=== PATIENT | female | born 1960 | race Caucasian/White ===

== ENCOUNTER → 2022-08-31 14:43 | Outpatient (CLI) | payer OTHER, MEDICAID, SELFPAY | PROVIDERS: PCP Family Medicine; Visit Provider Registered Nurse | DX: R30.0 Dysuria (principal) | CPT/HCPCS: 81002; 87077; 87086; 87186 ==

== ENCOUNTER 2022-11-03 10:13 | Emergency (ER) | payer OTHER, MEDICAID, SELFPAY ==
[2022-11-03 10:17] VITALS: BP 142/82; PULSE 95; RESP 14; TEMP 36.8; O2SAT 96
--- NOTE | 2022-11-03 10:26 | DI.RAD.S_ITS ---
PROCEDURE: XR HAND LT MIN 3V INDICATIONS: cat bite TECHNIQUE: 3 views of the hand(s) acquired. COMPARISON: [facility], CR, XR HAND 3+ VIEWS LEFT, 12/24/2017, 14:10. [facility], CR, HAND 3V RIGHT, 01/02/2015, 23:45. FINDINGS: Bones: No acute fractures or dislocations. Carpal bones are normally aligned. No suspicious bony lesions. Soft tissues: No suspicious soft tissuecalcifications. No radiopaque soft tissue foreign bodies . IMPRESSION: Left hand without acute osseous abnormalities. No radiopaque soft tissue foreign body seen. Dictated by: Jakub Talamantes M.D. on 11/03/2022 at 11:05 Approved by: Jakub Talamantes M.D. on 11/03/2022 at 11:07
--- NOTE | 2022-11-03 10:26 | DI.RAD.S_ITS ---
PROCEDURE: XR HAND RT MIN 3V INDICATIONS: cat bite TECHNIQUE: 3 views of the hand(s) acquired. COMPARISON: [facility], , HAND 3V RIGHT, 01/02/2015, 23:45. FINDINGS: Bones: No fractures or dislocations. Carpal bones are normally aligned. No suspicious bony lesions. Redemonstration of background polyarticular degenerative changes and healed fracture deformities of the head of the right 5th metacarpal. Soft tissues: No suspicious soft tissue calcifications. No radiopaque soft tissue foreign body. IMPRESSION: Right hand without acute fracture or dislocation. No radiopaque soft tissue foreign bodies. Dictated by: Jakub Talamantes M.D. on 11/03/2022 at 11:07 Approved by: Jakub Talamantes M.D. on 11/03/2022 at 11:08
[2022-11-03 11:22] VITALS: BP 189/98; PULSE 82; RESP 16; O2SAT 98
[2022-11-03] MEDS: TRAMADOL 50 MG TABLET PO (11:24)
--- NOTE | 2022-11-03 11:25 | ED_ITS ---
HPI - Neck Pain/Injury <Zi Beck PA-C - Last Filed: 11/03/22 11:37> General Chief Complaint: Neck Pain/Injury Stated Complaint: chest,neck and shoulder pain. possible infection Time Seen by Provider: 11/03/22 10:25 Mode of arrival: Ambulatory History of Present Illness HPI Narrative: 61-year-old female presents to the ED with neck pain and requesting a wound check for cat bite sustained yesterday. Patient was seen in the walk-in clinic yesterday for a cat bite, her tetanus was updated, she was started on doxycycline. Patient states that her fingers are painful and she thinks that her wound is infected, requesting wound evaluation. Patient also states that her neck pain has been worse since yesterday, endorses she has a chronic neck condition for which she is being evaluated by her PCP. Patient states that she had an MRI recently which showed some spinal narrowing. Patient has been referred to a orthopedic surgeon, she is waiting to see them. Patient denies fever, chills, numbness, tingling, weakness. Patient denies any new trauma or injuries. Related Data Home Medications Medication Instructions Recorded Confirmed amlodipine PO 08/31/22 08/31/22 mometasone-formoterol [Dulera] inhalation 08/31/22 08/31/22 prazosin PO 08/31/22 08/31/22 sertraline [Zoloft] PO 08/31/22 08/31/22 Previous Rx's Medication Instructions Recorded albuterol sulfate 90 mcg/actuation 1 puff INH Q4HP PRN #1 ea 01/31/16 aerosol inhaler (Ventolin HFA) ibuprofen 800 mg tablet 800 mg PO TIDP PRN #30 tabs 02/14/16 doxycycline hyclate 100 mg capsule 100 mg PO BID #14 caps 11/02/22 Allergies Allergy/AdvReac Type Severity Reaction Status Date / Time Penicillins Allergy Unknown Verified 11/03/22 10:21 Sulfa (Sulfonamide Allergy Unknown Verified 11/03/22 10:21 Antibiotics) ibuprofen AdvReac Unknown Verified 11/03/22 10:22 Review of Systems <Zi Beck PA-C - Last Filed: 11/03/22 11:37> Review of Systems ROS Unobtainable: All systems reviewed & are unremarkable except as noted in HPI and below Constitutional Constitutional: Denies chills, Denies fatigue, Denies fever(s), Denies frequent falls, Denies lethargy and Denies weakness Eyes Eyes: Denies change in vision, Denies eye discharge, Denies irritation and Denies loss of vision ENT Ears, Nose, Mouth, and Throat: Denies change in voice, Denies dizziness, Reports neck pain, Denies sore throat and Denies throat swelling Cardiovascular Cardiovascular: Denies chest pain, Denies irregular heart rhythm, Denies lightheadedness, Denies palpitations, Denies dyspnea, Denies dyspnea on exertion and Denies orthopnea Respiratory Respiratory: Denies cough, Denies dyspnea, Denies dyspnea on exertion and Denies wheezing Gastrointestinal Gastrointestinal: Denies abdominal pain, Denies change in bowel habits, Denies diarrhea, Denies nausea and Denies vomiting Genitourinary Genitourinary: Denies hematuria, Denies flank pain, Denies urinary incontinence and Denies urinary urgency Musculoskeletal Musculoskeletal: Denies back pain, Denies muscle weakness, Reports neck pain, Denies numbness and Denies tingling Integumentary/Breasts Skin/Breast: Denies pruritus, Denies erythema, Denies rash and Reports wounds Neurologic Neurologic: Denies behavioral changes, Denies confusion, Denies dizziness, Denies frequent falls, Denies loss of vision, Denies numbness, Denies tingling and Denies weakness Psychiatric Psychiatric: Denies anxiety, Denies behavioral changes, Denies confusion, Denies depression, Denies homicidal ideation and Denies suicidal ideation Endocrine Endocrine: Denies fatigue, Denies flushing and Denies palpitations Hematologic/Lymphatic Hematologic/Lymphatic: Denies easy bruising Allergic/Immunologic Allergic/Immunologic: Denies urticaria, Denies throat swelling and Denies wheezing Patient History <Zi Beck PA-C - Last Filed: 11/03/22 11:37> Social History Smoking Status: Current every day smoker Smoking Status: Current every day smoker alcohol intake frequency: 0-2 drinks per day Substance Use Type: does not use Exam <Zi Beck PA-C - Last Filed: 11/03/22 11:37> Narrative Exam Narrative: Const General:?cooperative, healthy appearing and comfortable [facility] Head:?normal to inspection Ears:?hearing grossly normal bilaterally Nose:?external nose normal Face and sinus:?normal facial exam and sinuses nontender Mouth:?oral mucosae normal Throat:?posterior oropharynx normal Eyes General:?appearance normal, both eyes and all related structures Neck Neck:?normal visual inspection and no lymphadenopathy noted Resp Effort & Inspection:?normal respiratory effort Auscultation:?clear to auscultation bilaterally Cardio Rate:?regular rate Rhythm:?regular rhythm Integumentary There are 2 bite wounds, 1 on left ring finger, 1 bite on right pointer finger. No overt signs of infection including redness, swelling, discharge. There is mild tenderness to palpation. Strength and sensation is intact. There is full range of motion. Patient is neurovascularly intact. Musculoskeletal No midline tenderness to palpation. No paraspinal tenderness to palpation. There is full range of motion of the neck. Neuro General:?patient alert, patient awake and patient oriented x3 Initial Vital Signs Initial Vital Signs: Vital Signs Temperature 98.3 F 11/03/22 10:17 Pulse Rate 95 H 11/03/22 10:17 Respiratory Rate 14 11/03/22 10:17 Blood Pressure 142/82 H 11/03/22 10:17 Pulse Oximetry 96 11/03/22 10:17 Oxygen Delivery Method Room Air 11/03/22 10:17 <Kenyatta Rosado DO - Last Filed: 11/09/22 09:19> Initial Vital Signs Initial Vital Signs: Vital Signs Temperature 98.3 F 11/03/22 10:17 Pulse Rate 95 H 11/03/22 10:17 Respiratory Rate 14 11/03/22 10:17 Blood Pressure 142/82 H 11/03/22 10:17 Pulse Oximetry 96 11/03/22 10:17 Oxygen Delivery Method Room Air 11/03/22 10:17 Course <Zi Beck PA-C - Last Filed: 11/03/22 11:37> Orders Ordered: Discontinued Medications Tramadol HCl (Tramadol 50 Mg Tablet) 50 mg PO NOW ONE Stop: 11/03/22 11:16 Last Admin: 11/03/22 11:24 Dose: 50 mg Documented By: SPF Vital Signs Vital signs: Vital Signs - 8 hr 11/03/22 10:17 11/03/22 11:22 Temperature 98.3 F Pulse Rate 95 H 82 Respiratory Rate 14 16 Blood Pressure 142/82 H 189/98 H Pulse Oximetry 96 98 Oxygen Delivery Method Room Air Room Air <Kenyatta Rosado DO - Last Filed: 11/09/22 09:19> Orders Ordered: Discontinued Medications Tramadol HCl (Tramadol 50 Mg Tablet) 50 mg PO NOW ONE Stop: 11/03/22 11:16 Last Admin: 11/03/22 11:24 Dose: 50 mg Documented By: IGNACIO Vital Signs Vital signs: Vital Signs - 8 hr 11/03/22 10:17 11/03/22 11:22 Temperature 98.3 F Pulse Rate 95 H 82 Respiratory Rate 14 16 Blood Pressure 142/82 H 189/98 H Pulse Oximetry 96 98 Oxygen Delivery Method Room Air Room Air MDM - Neck Pain/Injury <Zi Beck PA-C - Last Filed: 11/03/22 11:37> MDM Narrative Medical decision making narrative: 61-year-old female presents to the ED with neck pain and requesting a wound check for cat bite sustained yesterday. Obtained x-rays to rule out foreign objects/fracture/dislocation. No acute findings on x-rays. The cat bites appear to be healing without overt signs of infection. Patient is on the appropriate antibiotic, recommend completing the full course, counseled that antibiotics takes 2-3 days to fully kick in. Physical exam and history are reassuring regarding the neck pain. Patient denies numbness, tingling, weakness and there is no new injury or trauma. It seems like patient has an exacerbation of her chronic neck pain, and patient has appropriate follow-up with her PCP and orthopedic surgeon. Patient was given a dose of tramadol for acute pain control in the ED. Recommend supportive pain control with [id number] medications. ED return precautions discussed with patient. Patient verbalized understanding. Medical records reviewed: Yes Discharge Plan Departure Patient Disposition: Home Clinical Impression: Neck pain, Cat bite Instructions: Chronic Neck Pain, DI for Cat Bite Activity Restrictions/Additional Instructions: You were evaluated in the ED today for neck pain and a wound check for a cat bite. Your physical exam is reassuring, you have no spinal tenderness, no numbness tingling or weakness. Your neck pain appears to be an exacerbation of your chronic neck condition for which you had an MRI. Please follow-up with your orthopedic surgeon as planned. You may continue to apply lidocaine patches and take Tylenol or other [id number] medications. You are being given 1 dose of tramadol today for pain control in the ED. you sustained some cat bites yesterday for which you were started on doxycycline. Today in the ED, we obtained x-rays of your hands. X-rays did not show any foreign objects or fractures or dislocations. Your wounds appear to be healing well. Please note that it takes 2-3 days for antibiotics to kick in, so please continue your antibiotics as prescribed. Return to the ED if you experience any chest pain, shortness of breath, numbness, tingling, weakness, fever, chills. Prescriptions: No Action prazosin PO sertraline [Zoloft] PO amlodipine PO mometasone-formoterol [Dulera] inhalation doxycycline hyclate 100 mg capsule 100 mg PO BID Qty: 14 0RF albuterol sulfate [Ventolin HFA] 90 MCG/PUFF HFA aerosol inhaler 1 puff INH Q4HP PRNQty: 1 5RF ibuprofen 800 MG tablet 800 mg PO TIDP PRNQty: 30 0RF Referrals: Gerald Kan MD [Primary Care Provider] - Stand Alone Forms: Patient Portal/API <Kenyatta Rosado DO - Last Filed: 11/09/22 09:19> Cosign ED Attending Cosfannyature Attestation: I was immediately available in the department for consultation. Documentation has been reviewed.
[2022-11-03 11:34] VITALS: BP 189/98
== END 2022-11-03 11:34 | disposition home or self-care (01) ==
PROVIDERS: Emergency Provider Student in an Organized Health Care Education/Training Program; PCP Family Medicine
DX: S61.255A Open bite of left ring finger without damage to nail, initial encounter (principal); S61.250A Open bite of right index finger without damage to nail, initial encounter; M54.2 Cervicalgia; W55.01XA Bitten by cat, initial encounter
CPT/HCPCS: 73130; 99283

== ENCOUNTER 2023-01-28 13:20 | Observation (INO) | payer OTHER, MEDICAID, SELFPAY ==
[2023-01-28] VITALS (80 sets, daily range): BP systolic 91–150; BP diastolic 43–74; PULSE 38–97; RESP 12–46; TEMP 36.7; O2SAT 94–99; BMI 24.7
--- NOTE | 2023-01-28 13:42 | DI.RAD.S_ITS ---
PROCEDURE: XR CHEST 1V INDICATIONS: chest pain TECHNIQUE: One view of the chest was acquired. COMPARISON: [facility], , CHEST 2 VIEW, 10/23/2008, 22:09. FINDINGS: Surgical changes and devices: None. Lungs and pleura: Lungs are clear. No pleural effusions or pneumothorax. Mediastinum: Mediastinal contours appear normal. Heart size is mildly prominent. Bones and chest wall: No suspicious bony lesions. Overlying soft tissues appear unremarkable. IMPRESSION: Portable chest within normal limits for age. Dictated by: Alba Weiss M.D. on 01/28/2023 at 14:10 Approved by: Alba Weiss M.D. on 01/28/2023 at 14:10
[2023-01-28 14:02] LABS: Add Manual Diff / Slide Review NO; Basophils Absolute Auto 100 /uL (0-100); Basophils Percent Auto 0.9 % (0-2); Eosinophils Absolute Auto 100 /uL (0-450); Eosinophils Percent Auto 0.9 % (2-4); Hematocrit 41.9 % (36-46); Hemoglobin 14.4 g/dL (12.0-16.0); Lymphocytes Absolute Auto 1400 /uL (1100-4500); Lymphocytes Percent Auto 13.5 % (25-40); Mean Corpuscular HGB Conc 34.4 % (30-36); Mean Corpuscular Hemoglobin 28.1 PG (26-34); Mean Corpuscular Volume 81.6 fL (80-100); Monocytes Absolute Auto 600 /uL (0-900); Monocytes Percent Auto 5.5 % (3-14); Neutrophils Absolute Auto 8200 /uL (1500-7000); Neutrophils Percent Auto 79.2 % (50-75); Platelet Count 210 X10^3/uL (150-400); Red Blood Cell Count 5.14 X10^6/uL (4.0-5.2); Red Cell Distribution Width 14.4 % (11.6-14.8); White Blood Cell Count 10.4 X10^3/uL (4.5-11.0)
[2023-01-28 14:14] LABS: Alanine Aminotransferase 19 IU/L (<35); Albumin 3.4 g/dL (3.5-5.0); Albumin Globulin Ratio 1.2 (1.0-2.8); Alkaline Phosphatase 78 U/L (38-126); Aspartate Aminotransferase 27 IU/L (14-36); BUN Creatinine Ratio 22.1 (6-22); Bilirubin Total 0.6 mg/dL (0.2-1.3); Blood Urea Nitrogen 23 mg/dL (7-17); Calcium 8.2 mg/dL (8.4-10.2); Carbon Dioxide 19 mmol/L (22-32); Chloride 107 mmol/L (98-107); Creatine Kinase 42 U/L (30-135); Estimated Glomerular Filt Rate > 60 mL/min (>60); Globulin 2.8 g/dL (1.7-4.1); Glucose 117 mg/dL (80-110); HEMOLYSIS 26 (0-50); Lipase 74 U/L (23-300); Magnesium 1.7 mg/dL (1.6-2.3); Potassium 3.4 mmol/L (3.4-5.1); Sodium 132 mmol/L (137-145); Total Protein 6.2 g/dL (6.3-8.2)
[2023-01-28 14:26] LABS: Troponin I 0.042 ng/mL (0.01-0.034)
[2023-01-28 15:02] LABS: INR 1.1 (0.9-1.3); Prothrombin Time 12.7 SECONDS (10.1-12.7)
[2023-01-28 15:05] LABS: PTT Partial Thromboplastin Tim 28 SECONDS (26-36)
--- NOTE | 2023-01-28 15:19 | ED_ITS ---
HPI - Weakness <Goyo Harris MD - Last Filed: 02/05/23 07:25> General Chief complaint: Weakness Stated complaint: Weakness, dehydration Time Seen by Provider: 01/28/23 14:57 Source: EMS Mode of arrival: EMS History of Present Illness HPI Narrative: Patient brought in by EMS from home. Complains of dizziness weakness. Patient states she accidentally took too much clonidine 2 days ago on Wednesday. She has been under a lot of stress. She states she had stress with her boyfriend. Denies denies any SI or HI. Denies taking any other medications. Related Data Home Medications Medication Instructions Recorded Confirmed amlodipine 10 mg PO 1XD 08/31/22 01/29/23 mometasone-formoterol [Dulera] 1 inh inhalation DAILY 08/31/22 01/29/23 prazosin 2 mg PO 1XD 08/31/22 01/29/23 sertraline [Zoloft] 100 mg PO 1XD 08/31/22 01/29/23 ferrous sulfate 325 mg (65 mg 325 mg PO Q OTHER DAY 01/28/23 01/29/23 iron) tablet (FeroSul) Previous Rx's Medication Instructions Recorded albuterol sulfate 90 mcg/actuation 1 puff INH Q4HP PRN #1 ea 01/31/16 aerosol inhaler (Ventolin HFA) Allergies Allergy/AdvReac Type Severity Reaction Status Date / Time Penicillins Allergy Unknown Verified 11/03/22 10:21 Sulfa (Sulfonamide Allergy Unknown Verified 11/03/22 10:21 Antibiotics) ibuprofen AdvReac Unknown Verified 11/03/22 10:22 Review of Systems <Goyo Harris MD - Last Filed: 02/05/23 07:25> Review of Systems Narrative: GENERAL: negative chills, positive fatigue, malaise, negative fever, sweats. HEENT: negative sinus pain, ear pain, sore throat RESPIRATORY: negative dyspnea, cough CARDIOVASCULAR: negative chest pain, palpitations GASTROINTESTINAL: negative nausea, vomiting, abdominal pain : negative dysuria, frequency, hematuria MUSCULOSKELETAL: negative muscle or bony pain SKIN: negative rash, skin lesions NEUROLOGIC: negative weakness, numbness ROS Unobtainable: All systems reviewed & are unremarkable except as noted in HPI and below Patient History <Goyo Harris MD - Last Filed: 02/05/23 07:25> Social History household members: friend(s) Smoking Status: Current every day smoker Smoking Status: Current every day smoker tobacco type: cigarettes alcohol intake frequency: 0-2 drinks per day Substance Use Type: does not use, former substance user, IV drugs and methamphe tamine Exam <Goyo Harris MD - Last Filed: 02/05/23 07:25> Narrative Exam Narrative: GENERAL: in no distress, not toxic not dyspneic HEAD: Normocephalic. EYES: Pupils equal round ENT: Mucous membranes moist. NECK: Trachea midline. CARDIOVASCULAR: Regular rate and rhythm but bradycardic RESPIRATORY: Clear to auscultation. Breath sounds equal bilaterally. No wheezes, rales, or rhonchi. GASTROINTESTINAL: Abdomen soft, non-tender EXTREMITIES: No gross deformities. BACK: No flank tenderness. NEURO: AOx4. SKIN: Warm and dry PSYCH: Not anxious, is cooperative, denies SI or HI. Is cooperative. Not combative Initial Vital Signs Initial Vital Signs: Vital Signs Pulse Rate 42 L 01/28/23 13:30 Respiratory Rate 22 01/28/23 13:30 Blood Pressure 150/68 H 01/28/23 13:30 Pulse Oximetry 96 01/28/23 13:30 <Casandra Devine DO - Last Filed: 01/28/23 20:00> Initial Vital Signs Initial Vital Signs: Vital Signs Pulse Rate 42 L 01/28/23 13:30 Respiratory Rate 22 01/28/23 13:30 Blood Pressure 150/68 H 01/28/23 13:30 Pulse Oximetry 96 01/28/23 13:30 Course <Goyo Harris MD - Last Filed: 02/05/23 07:25> Orders Ordered: Discontinued Medications Acetaminophen (Acetaminophen 325 Mg Tablet) 650 mg PO Q6H PRN PRN Reason: Fever/Mild Pain (1-3) Albuterol (Albuterol 2.5 Mg/3 Ml Neb (Adult)) 2.5 mg INH [id number] PRN PRN Reason: Dyspnea Calcium Carbonate (Calcium Carbonate 500 Mg Tab) 1,000 mg PO Q4HR PRN PRN Reason: Dyspepsia Hydralazine HCl (Hydralazine 25 Mg Tablet) 25 mg PO Q6HR PRN PRN Reason: Hypertension Magnesium Sulfate (Magnesium Sulfate) 2 gm in 50 mls @ 150 mls/hr IV NOW ONE Stop: 01/28/23 15:42 Last Infusion: 01/28/23 16:45 Dose: 0 mls/hr Documented By: KIRILL Co-signed By: HECTOR Admin: 01/28/23 16:04 Dose: 150 mls/hr Documented By: KIRILL Co-signed By: VIDYA Sodium Chloride (Normal Saline 0.9%) 1,000 mls @ 1,000 mls/hr IV BOLUS ONE Stop: 01/28/23 19:12 Last Infusion: 01/28/23 19:41 Dose: 0 mls/hr Documented By: Admin: 01/28/23 18:14 Dose: 1,000 mls/hr Documented By: KIRILL Sodium Chloride (Normal Saline 0.9%) 1,000 mls @ 100 mls/hr IV CONT RAKEL Last Admin: 01/29/23 00:44 Dose: 100 mls/hr Documented By: Lorazepam (Lorazepam 0.5 Mg Tablet) 0.5 mg PO Q4HR PRN PRN Reason: Anxiety Last Admin: 01/29/23 08:59 Dose: 0.5 mg Documented By: Admin: 01/29/23 00:44 Dose: 0.5 mg Documented By: Naloxone HCl (Naloxone 0.4 Mg/Ml Vial) 0.2 mg IV Q2MIN PRN PRN Reason: Opiate Reversal Nicotine (Nicotine 21 Mg Patch) 21 mg TOP DAILY RAKEL Last Admin: 01/29/23 08:58 Dose: 21 mg Documented By: ANSON Ondansetron HCl (Ondansetron 4 Mg/2 Ml Inj) 4 mg IV Q8HR PRN PRN Reason: Nausea And Vomiting Vital Signs Vital signs: Vital Signs - 8 hr 01/28/23 13:42 01/28/23 13:30 01/28/23 13:30 Temperature 98.1 F Pulse Rate 38 L 42 L Pulse Rate [Orthostatic Lying] Pulse Rate [Orthostatic Sitting] Respiratory Rate 12 22 Blood Pressure 150/68 H 150/68 H Blood Pressure [Orthostatic Lying] Blood Pressure [Orthostatic Sitting] Blood Pressure [Orthostatic Standing] Pulse Oximetry 99 96 Oxygen Delivery Method Room Air 01/28/23 14:00 01/28/23 14:13 01/28/23 14:13 Temperature Pulse Rate 43 L 46 L Pulse Rate [Orthostatic Lying] Pulse Rate [Orthostatic Sitting] Respiratory Rate 19 17 Blood Pressure 146/63 H 146/63 H Blood Pressure [Orthostatic Lying] Blood Pressure [Orthostatic Sitting] Blood Pressure [Orthostatic Standing] Pulse Oximetry 96 96 Oxygen Delivery Method Room Air 01/28/23 14:30 01/28/23 15:00 01/28/23 15:00 Temperature Pulse Rate 45 L 44 L Pulse Rate [Orthostatic Lying] Pulse Rate [Orthostatic Sitting] Respiratory Rate 17 18 Blood Pressure 120/59 L Blood Pressure [Orthostatic Lying] Blood Pressure [Orthostatic Sitting] Blood Pressure [Orthostatic Standing] Pulse Oximetry 95 96 Oxygen Delivery Method 01/28/23 15:30 01/28/23 15:31 01/28/23 15:31 Temperature Pulse Rate 48 L 45 L Pulse Rate [Orthostatic Lying] Pulse Rate [Orthostatic Sitting] Respiratory Rate 23 23 Blood Pressure 122/59 L Blood Pressure [Orthostatic Lying] Blood Pressure [Orthostatic Sitting] Blood Pressure [Orthostatic Standing] Pulse Oximetry 97 97 Oxygen Delivery Method 01/28/23 16:00 01/28/23 16:00 01/28/23 17:14 Temperature Pulse Rate 43 L Pulse Rate [Orthostatic Lying] 58 L Pulse Rate [Orthostatic Sitting] 48 L Respiratory Rate 16 Blood Pressure 130/62 Blood Pressure [Orthostatic Lying] 122/59 L Blood Pressure [Orthostatic Sitting] 113/66 Blood Pressure [Orthostatic Standing] 97/46 L Pulse Oximetry 97 Oxygen Delivery Method 01/28/23 16:02 01/28/23 16:04 01/28/23 16:06 Temperature Pulse Rate 43 L 43 L 42 L Pulse Rate [Orthostatic Lying] Pulse Rate [Orthostatic Sitting] Respiratory Rate 16 20 23 Blood Pressure Blood Pressure [Orthostatic Lying] Blood Pressure [Orthostatic Sitting] Blood Pressure [Orthostatic Standing] Pulse Oximetry 97 97 97 Oxygen Delivery Method 01/28/23 16:08 01/28/23 16:10 01/28/23 16:12 Temperature Pulse Rate 46 L 49 L Pulse Rate [Orthostatic Lying] Pulse Rate [Orthostatic Sitting] Respiratory Rate 20 23 Blood Pressure 125/69 Blood Pressure [Orthostatic Lying] Blood Pressure [Orthostatic Sitting] Blood Pressure [Orthostatic Standing] Pulse Oximetry 97 97 Oxygen Delivery Method 01/28/23 16:12 01/28/23 16:14 01/28/23 16:15 Temperature Pulse Rate 46 L 46 L 49 L Pulse Rate [Orthostatic Lying] Pulse Rate [Orthostatic Sitting] Respiratory Rate 25 H 20 30 H Blood Pressure Blood Pressure [Orthostatic Lying] Blood Pressure [Orthostatic Sitting] Blood Pressure [Orthostatic Standing] Pulse Oximetry 97 97 97 Oxygen Delivery Method 01/28/23 16:15 01/28/23 16:16 01/28/23 16:18 Temperature Pulse Rate 57 L 57 L Pulse Rate [Orthostatic Lying] Pulse Rate [Orthostatic Sitting] Respiratory Rate 46 H Blood Pressure 122/67 Blood Pressure [Orthostatic Lying] Blood Pressure [Orthostatic Sitting] Blood Pressure [Orthostatic Standing] Pulse Oximetry 96 94 Oxygen Delivery Method 01/28/23 16:20 01/28/23 16:22 01/28/23 16:24 Temperature Pulse Rate 63 67 65 Pulse Rate [Orthostatic Lying] Pulse Rate [Orthostatic Sitting] Respiratory Rate Blood Pressure Blood Pressure [Orthostatic Lying] Blood Pressure [Orthostatic Sitting] Blood Pressure [Orthostatic Standing] Pulse Oximetry 97 97 98 Oxygen Delivery Method 01/28/23 16:25 01/28/23 16:25 01/28/23 16:26 Temperature Pulse Rate 57 L 53 L Pulse Rate [Orthostatic Lying] Pulse Rate [Orthostatic Sitting] Respiratory Rate 15 Blood Pressure 97/46 L Blood Pressure [Orthostatic Lying] Blood Pressure [Orthostatic Sitting] Blood Pressure [Orthostatic Standing] Pulse Oximetry 96 96 Oxygen Delivery Method 01/28/23 16:28 01/28/23 16:30 01/28/23 16:31 Temperature Pulse Rate 47 L 46 L Pulse Rate [Orthostatic Lying] Pulse Rate [Orthostatic Sitting] Respiratory Rate 26 H 26 H Blood Pressure 110/59 L Blood Pressure [Orthostatic Lying] Blood Pressure [Orthostatic Sitting] Blood Pressure [Orthostatic Standing] Pulse Oximetry 96 96 Oxygen Delivery Method 01/28/23 16:31 01/28/23 16:32 01/28/23 16:34 Temperature Pulse Rate 52 L 43 L 45 L Pulse Rate [Orthostatic Lying] Pulse Rate [Orthostatic Sitting] Respiratory Rate 20 19 19 Blood Pressure Blood Pressure [Orthostatic Lying] Blood Pressure [Orthostatic Sitting] Blood Pressure [Orthostatic Standing] Pulse Oximetry 95 95 95 Oxygen Delivery Method 01/28/23 16:36 01/28/23 16:36 01/28/23 16:38 Temperature Pulse Rate 43 L 45 L Pulse Rate [Orthostatic Lying] Pulse Rate [Orthostatic Sitting] Respiratory Rate 20 18 Blood Pressure 122/59 L Blood Pressure [Orthostatic Lying] Blood Pressure [Orthostatic Sitting] Blood Pressure [Orthostatic Standing] Pulse Oximetry 95 95 Oxygen Delivery Method 01/28/23 16:40 01/28/23 16:42 01/28/23 16:44 Temperature Pulse Rate 97 H 52 L 53 L Pulse Rate [Orthostatic Lying] Pulse Rate [Orthostatic Sitting] Respiratory Rate 26 H 26 H 35 H Blood Pressure Blood Pressure [Orthostatic Lying] Blood Pressure [Orthostatic Sitting] Blood Pressure [Orthostatic Standing] Pulse Oximetry 95 96 96 Oxygen Delivery Method 01/28/23 16:46 01/28/23 16:48 01/28/23 16:50 Temperature Pulse Rate 55 L 67 56 L Pulse Rate [Orthostatic Lying] Pulse Rate [Orthostatic Sitting] Respiratory Rate 31 H 29 H 26 H Blood Pressure Blood Pressure [Orthostatic Lying] Blood Pressure [Orthostatic Sitting] Blood Pressure [Orthostatic Standing] Pulse Oximetry 95 96 95 Oxygen Delivery Method 01/28/23 16:52 01/28/23 16:54 01/28/23 16:55 Temperature Pulse Rate 49 L 44 L Pulse Rate [Orthostatic Lying] Pulse Rate [Orthostatic Sitting] Respiratory Rate 32 H 16 Blood Pressure 112/54 L Blood Pressure [Orthostatic Lying] Blood Pressure [Orthostatic Sitting] Blood Pressure [Orthostatic Standing] Pulse Oximetry 95 95 Oxygen Delivery Method 01/28/23 16:55 01/28/23 16:56 01/28/23 16:58 Temperature Pulse Rate 45 L 42 L 44 L Pulse Rate [Orthostatic Lying] Pulse Rate [Orthostatic Sitting] Respiratory Rate 17 18 26 H Blood Pressure Blood Pressure [Orthostatic Lying] Blood Pressure [Orthostatic Sitting] Blood Pressure [Orthostatic Standing] Pulse Oximetry 96 95 94 Oxygen Delivery Method 01/28/23 17:00 01/28/23 17:00 01/28/23 17:02 Temperature Pulse Rate 39 L 40 L Pulse Rate [Orthostatic Lying] Pulse Rate [Orthostatic Sitting] Respiratory Rate 18 18 Blood Pressure 113/66 Blood Pressure [Orthostatic Lying] Blood Pressure [Orthostatic Sitting] Blood Pressure [Orthostatic Standing] Pulse Oximetry 95 96 Oxygen Delivery Method 01/28/23 17:04 01/28/23 17:05 01/28/23 17:05 Temperature Pulse Rate 45 L Pulse Rate [Orthostatic Lying] Pulse Rate [Orthostatic Sitting] Respiratory Rate 18 18 Blood Pressure 117/57 L Blood Pressure [Orthostatic Lying] Blood Pressure [Orthostatic Sitting] Blood Pressure [Orthostatic Standing] Pulse Oximetry 96 95 Oxygen Delivery Method 01/28/23 17:06 01/28/23 17:10 01/28/23 17:10 Temperature Pulse Rate 40 L 49 L Pulse Rate [Orthostatic Lying] Pulse Rate [Orthostatic Sitting] Respiratory Rate 18 20 Blood Pressure 115/52 L Blood Pressure [Orthostatic Lying] Blood Pressure [Orthostatic Sitting] Blood Pressure [Orthostatic Standing] Pulse Oximetry 96 96 Oxygen Delivery Method Room Air 01/28/23 17:16 01/28/23 17:16 01/28/23 17:24 Temperature Pulse Rate 49 L 49 L Pulse Rate [Orthostatic Lying] Pulse Rate [Orthostatic Sitting] Respiratory Rate 21 18 Blood Pressure 117/74 Blood Pressure [Orthostatic Lying] Blood Pressure [Orthostatic Sitting] Blood Pressure [Orthostatic Standing] Pulse Oximetry 95 95 Oxygen Delivery Method 01/28/23 17:24 01/28/23 17:26 01/28/23 17:30 Temperature Pulse Rate Pulse Rate [Orthostatic Lying] Pulse Rate [Orthostatic Sitting] Respiratory Rate 17 Blood Pressure 105/55 L 91/55 L Blood Pressure [Orthostatic Lying] Blood Pressure [Orthostatic Sitting] Blood Pressure [Orthostatic Standing] Pulse Oximetry 96 Oxygen Delivery Method 01/28/23 17:30 01/28/23 17:36 01/28/23 17:36 Temperature Pulse Rate 55 L 59 L Pulse Rate [Orthostatic Lying] Pulse Rate [Orthostatic Sitting] Respiratory Rate 24 Blood Pressure 101/43 L Blood Pressure [Orthostatic Lying] Blood Pressure [Orthostatic Sitting] Blood Pressure [Orthostatic Standing] Pulse Oximetry 95 96 Oxygen Delivery Method Room Air 01/28/23 17:40 01/28/23 17:49 01/28/23 17:49 Temperature Pulse Rate 53 L 49 L Pulse Rate [Orthostatic Lying] Pulse Rate [Orthostatic Sitting] Respiratory Rate 18 18 Blood Pressure 102/55 L Blood Pressure [Orthostatic Lying] Blood Pressure [Orthostatic Sitting] Blood Pressure [Orthostatic Standing] Pulse Oximetry 95 96 Oxygen Delivery Method 01/28/23 17:55 01/28/23 18:00 01/28/23 18:02 Temperature Pulse Rate 56 L 54 L 54 L Pulse Rate [Orthostatic Lying] Pulse Rate [Orthostatic Sitting] Respiratory Rate 22 23 21 Blood Pressure Blood Pressure [Orthostatic Lying] Blood Pressure [Orthostatic Sitting] Blood Pressure [Orthostatic Standing] Pulse Oximetry 97 96 96 Oxygen Delivery Method 01/28/23 18:04 01/28/23 18:06 01/28/23 18:08 Temperature Pulse Rate 48 L 55 L 49 L Pulse Rate [Orthostatic Lying] Pulse Rate [Orthostatic Sitting] Respiratory Rate 19 23 21 Blood Pressure Blood Pressure [Orthostatic Lying] Blood Pressure [Orthostatic Sitting] Blood Pressure [Orthostatic Standing] Pulse Oximetry 96 95 97 Oxygen Delivery Method 01/28/23 18:10 01/28/23 18:12 01/28/23 18:14 Temperature Pulse Rate 47 L 47 L 47 L Pulse Rate [Orthostatic Lying] Pulse Rate [Orthostatic Sitting] Respiratory Rate 19 19 19 Blood Pressure Blood Pressure [Orthostatic Lying] Blood Pressure [Orthostatic Sitting] Blood Pressure [Orthostatic Standing] Pulse Oximetry 96 96 96 Oxygen Delivery Method 01/28/23 18:16 Temperature Pulse Rate 47 L Pulse Rate [Orthostatic Lying] Pulse Rate [Orthostatic Sitting] Respiratory Rate Blood Pressure 110/54 L Blood Pressure [Orthostatic Lying] Blood Pressure [Orthostatic Sitting] Blood Pressure [Orthostatic Standing] Pulse Oximetry 97 Oxygen Delivery Method <Casandra Devine, - Last Filed: 01/28/23 20:00> Orders Ordered: Discontinued Medications Acetaminophen (Acetaminophen 325 Mg Tablet) 650 mg PO Q6H PRN PRN Reason: Fever/Mild Pain (1-3) Albuterol (Albuterol 2.5 Mg/3 Ml Neb (Adult)) 2.5 mg INH [id number] PRN PRN Reason: Dyspnea Calcium Carbonate (Calcium Carbonate 500 Mg Tab) 1,000 mg PO Q4HR PRN PRN Reason: Dyspepsia Hydralazine HCl (Hydralazine 25 Mg Tablet) 25 mg PO Q6HR PRN PRN Reason: Hypertension Magnesium Sulfate (Magnesium Sulfate) 2 gm in 50 mls @ 150 mls/hr IV NOW ONE Stop: 01/28/23 15:42 Last Infusion: 01/28/23 16:45 Dose: 0 mls/hr Documented By: KIRILL Co-signed By: HECTOR Admin: 01/28/23 16:04 Dose: 150 mls/hr Documented By: KIRILL Co-signed By: VIYDA Sodium Chloride (Normal Saline 0.9%) 1,000 mls @ 1,000 mls/hr IV BOLUS ONE Stop: 01/28/23 19:12 Last Infusion: 01/28/23 19:41 Dose: 0 mls/hr Documented By: Admin: 01/28/23 18:14 Dose: 1,000 mls/hr Documented By: KIRILL Sodium Chloride (Normal Saline 0.9%) 1,000 mls @ 100 mls/hr IV CONT RAKEL Last Admin: 01/29/23 00:44 Dose: 100 mls/hr Documented By: Lorazepam (Lorazepam 0.5 Mg Tablet) 0.5 mg PO Q4HR PRN PRN Reason: Anxiety Last Admin: 01/29/23 08:59 Dose: 0.5 mg Documented By: Admin: 01/29/23 00:44 Dose: 0.5 mg Documented By: Naloxone HCl (Naloxone 0.4 Mg/Ml Vial) 0.2 mg IV Q2MIN PRN PRN Reason: Opiate Reversal Nicotine (Nicotine 21 Mg Patch) 21 mg TOP DAILY [facility] Last Admin: 01/29/23 08:58 Dose: 21 mg Documented By: ANSON Ondansetron HCl (Ondansetron 4 Mg/2 Ml Inj) 4 mg IV Q8HR PRN PRN Reason: Nausea And Vomiting Vital Signs Vital signs: Vital Signs - 8 hr 01/28/23 13:42 01/28/23 13:30 01/28/23 13:30 Temperature 98.1 F Pulse Rate 38 L 42 L Pulse Rate [Orthostatic Lying] Pulse Rate [Orthostatic Sitting] Respiratory Rate 12 22 Blood Pressure 150/68 H 150/68 H Blood Pressure [Orthostatic Lying] Blood Pressure [Orthostatic Sitting] Blood Pressure [Orthostatic Standing] Pulse Oximetry 99 96 Oxygen Delivery Method Room Air 01/28/23 14:00 01/28/23 14:13 01/28/23 14:13 Temperature Pulse Rate 43 L 46 L Pulse Rate [Orthostatic Lying] Pulse Rate [Orthostatic Sitting] Respiratory Rate 19 17 Blood Pressure 146/63 H 146/63 H Blood Pressure [Orthostatic Lying] Blood Pressure [Orthostatic Sitting] Blood Pressure [Orthostatic Standing] Pulse Oximetry 96 96 Oxygen Delivery Method Room Air 01/28/23 14:30 01/28/23 15:00 01/28/23 15:00 Temperature Pulse Rate 45 L 44 L Pulse Rate [Orthostatic Lying] Pulse Rate [Orthostatic Sitting] Respiratory Rate 17 18 Blood Pressure 120/59 L Blood Pressure [Orthostatic Lying] Blood Pressure [Orthostatic Sitting] Blood Pressure [Orthostatic Standing] Pulse Oximetry 95 96 Oxygen Delivery Method 01/28/23 15:30 01/28/23 15:31 01/28/23 15:31 Temperature Pulse Rate 48 L 45 L Pulse Rate [Orthostatic Lying] Pulse Rate [Orthostatic Sitting] Respiratory Rate 23 23 Blood Pressure 122/59 L Blood Pressure [Orthostatic Lying] Blood Pressure [Orthostatic Sitting] Blood Pressure [Orthostatic Standing] Pulse Oximetry 97 97 Oxygen Delivery Method 01/28/23 16:00 01/28/23 16:00 01/28/23 17:14 Temperature Pulse Rate 43 L Pulse Rate [Orthostatic Lying] 58 L Pulse Rate [Orthostatic Sitting] 48 L Respiratory Rate 16 Blood Pressure 130/62 Blood Pressure [Orthostatic Lying] 122/59 L Blood Pressure [Orthostatic Sitting] 113/66 Blood Pressure [Orthostatic Standing] 97/46 L Pulse Oximetry 97 Oxygen Delivery Method 01/28/23 16:02 01/28/23 16:04 01/28/23 16:06 Temperature Pulse Rate 43 L 43 L 42 L Pulse Rate [Orthostatic Lying] Pulse Rate [Orthostatic Sitting] Respiratory Rate 16 20 23 Blood Pressure Blood Pressure [Orthostatic Lying] Blood Pressure [Orthostatic Sitting] Blood Pressure [Orthostatic Standing] Pulse Oximetry 97 97 97 Oxygen Delivery Method 01/28/23 16:08 01/28/23 16:10 01/28/23 16:12 Temperature Pulse Rate 46 L 49 L Pulse Rate [Orthostatic Lying] Pulse Rate [Orthostatic Sitting] Respiratory Rate 20 23 Blood Pressure 125/69 Blood Pressure [Orthostatic Lying] Blood Pressure [Orthostatic Sitting] Blood Pressure [Orthostatic Standing] Pulse Oximetry 97 97 Oxygen Delivery Method 01/28/23 16:12 01/28/23 16:14 01/28/23 16:15 Temperature Pulse Rate 46 L 46 L 49 L Pulse Rate [Orthostatic Lying] Pulse Rate [Orthostatic Sitting] Respiratory Rate 25 H 20 30 H Blood Pressure Blood Pressure [Orthostatic Lying] Blood Pressure [Orthostatic Sitting] Blood Pressure [Orthostatic Standing] Pulse Oximetry 97 97 97 Oxygen Delivery Method 01/28/23 16:15 01/28/23 16:16 01/28/23 16:18 Temperature Pulse Rate 57 L 57 L Pulse Rate [Orthostatic Lying] Pulse Rate [Orthostatic Sitting] Respiratory Rate 46 H Blood Pressure 122/67 Blood Pressure [Orthostatic Lying] Blood Pressure [Orthostatic Sitting] Blood Pressure [Orthostatic Standing] Pulse Oximetry 96 94 Oxygen Delivery Method 01/28/23 16:20 01/28/23 16:22 01/28/23 16:24 Temperature Pulse Rate 63 67 65 Pulse Rate [Orthostatic Lying] Pulse Rate [Orthostatic Sitting] Respiratory Rate Blood Pressure Blood Pressure [Orthostatic Lying] Blood Pressure [Orthostatic Sitting] Blood Pressure [Orthostatic Standing] Pulse Oximetry 97 97 98 Oxygen Delivery Method 01/28/23 16:25 01/28/23 16:25 01/28/23 16:26 Temperature Pulse Rate 57 L 53 L Pulse Rate [Orthostatic Lying] Pulse Rate [Orthostatic Sitting] Respiratory Rate 15 Blood Pressure 97/46 L Blood Pressure [Orthostatic Lying] Blood Pressure [Orthostatic Sitting] Blood Pressure [Orthostatic Standing] Pulse Oximetry 96 96 Oxygen Delivery Method 01/28/23 16:28 01/28/23 16:30 01/28/23 16:31 Temperature Pulse Rate 47 L 46 L Pulse Rate [Orthostatic Lying] Pulse Rate [Orthostatic Sitting] Respiratory Rate 26 H 26 H Blood Pressure 110/59 L Blood Pressure [Orthostatic Lying] Blood Pressure [Orthostatic Sitting] Blood Pressure [Orthostatic Standing] Pulse Oximetry 96 96 Oxygen Delivery Method 01/28/23 16:31 01/28/23 16:32 01/28/23 16:34 Temperature Pulse Rate 52 L 43 L 45 L Pulse Rate [Orthostatic Lying] Pulse Rate [Orthostatic Sitting] Respiratory Rate 20 19 19 Blood Pressure Blood Pressure [Orthostatic Lying] Blood Pressure [Orthostatic Sitting] Blood Pressure [Orthostatic Standing] Pulse Oximetry 95 95 95 Oxygen Delivery Method 01/28/23 16:36 01/28/23 16:36 01/28/23 16:38 Temperature Pulse Rate 43 L 45 L Pulse Rate [Orthostatic Lying] Pulse Rate [Orthostatic Sitting] Respiratory Rate 20 18 Blood Pressure 122/59 L Blood Pressure [Orthostatic Lying] Blood Pressure [Orthostatic Sitting] Blood Pressure [Orthostatic Standing] Pulse Oximetry 95 95 Oxygen Delivery Method 01/28/23 16:40 01/28/23 16:42 01/28/23 16:44 Temperature Pulse Rate 97 H 52 L 53 L Pulse Rate [Orthostatic Lying] Pulse Rate [Orthostatic Sitting] Respiratory Rate 26 H 26 H 35 H Blood Pressure Blood Pressure [Orthostatic Lying] Blood Pressure [Orthostatic Sitting] Blood Pressure [Orthostatic Standing] Pulse Oximetry 95 96 96 Oxygen Delivery Method 01/28/23 16:46 01/28/23 16:48 01/28/23 16:50 Temperature Pulse Rate 55 L 67 56 L Pulse Rate [Orthostatic Lying] Pulse Rate [Orthostatic Sitting] Respiratory Rate 31 H 29 H 26 H Blood Pressure Blood Pressure [Orthostatic Lying] Blood Pressure [Orthostatic Sitting] Blood Pressure [Orthostatic Standing] Pulse Oximetry 95 96 95 Oxygen Delivery Method 01/28/23 16:52 01/28/23 16:54 01/28/23 16:55 Temperature Pulse Rate 49 L 44 L Pulse Rate [Orthostatic Lying] Pulse Rate [Orthostatic Sitting] Respiratory Rate 32 H 16 Blood Pressure 112/54 L Blood Pressure [Orthostatic Lying] Blood Pressure [Orthostatic Sitting] Blood Pressure [Orthostatic Standing] Pulse Oximetry 95 95 Oxygen Delivery Method 01/28/23 16:55 01/28/23 16:56 01/28/23 16:58 Temperature Pulse Rate 45 L 42 L 44 L Pulse Rate [Orthostatic Lying] Pulse Rate [Orthostatic Sitting] Respiratory Rate 17 18 26 H Blood Pressure Blood Pressure [Orthostatic Lying] Blood Pressure [Orthostatic Sitting] Blood Pressure [Orthostatic Standing] Pulse Oximetry 96 95 94 Oxygen Delivery Method 01/28/23 17:00 01/28/23 17:00 01/28/23 17:02 Temperature Pulse Rate 39 L 40 L Pulse Rate [Orthostatic Lying] Pulse Rate [Orthostatic Sitting] Respiratory Rate 18 18 Blood Pressure 113/66 Blood Pressure [Orthostatic Lying] Blood Pressure [Orthostatic Sitting] Blood Pressure [Orthostatic Standing] Pulse Oximetry 95 96 Oxygen Delivery Method 01/28/23 17:04 01/28/23 17:05 01/28/23 17:05 Temperature Pulse Rate 45 L Pulse Rate [Orthostatic Lying] Pulse Rate [Orthostatic Sitting] Respiratory Rate 18 18 Blood Pressure 117/57 L Blood Pressure [Orthostatic Lying] Blood Pressure [Orthostatic Sitting] Blood Pressure [Orthostatic Standing] Pulse Oximetry 96 95 Oxygen Delivery Method 01/28/23 17:06 01/28/23 17:10 01/28/23 17:10 Temperature Pulse Rate 40 L 49 L Pulse Rate [Orthostatic Lying] Pulse Rate [Orthostatic Sitting] Respiratory Rate 18 20 Blood Pressure 115/52 L Blood Pressure [Orthostatic Lying] Blood Pressure [Orthostatic Sitting] Blood Pressure [Orthostatic Standing] Pulse Oximetry 96 96 Oxygen Delivery Method Room Air 01/28/23 17:16 01/28/23 17:16 01/28/23 17:24 Temperature Pulse Rate 49 L 49 L Pulse Rate [Orthostatic Lying] Pulse Rate [Orthostatic Sitting] Respiratory Rate 21 18 Blood Pressure 117/74 Blood Pressure [Orthostatic Lying] Blood Pressure [Orthostatic Sitting] Blood Pressure [Orthostatic Standing] Pulse Oximetry 95 95 Oxygen Delivery Method 01/28/23 17:24 01/28/23 17:26 01/28/23 17:30 Temperature Pulse Rate Pulse Rate [Orthostatic Lying] Pulse Rate [Orthostatic Sitting] Respiratory Rate 17 Blood Pressure 105/55 L 91/55 L Blood Pressure [Orthostatic Lying] Blood Pressure [Orthostatic Sitting] Blood Pressure [Orthostatic Standing] Pulse Oximetry 96 Oxygen Delivery Method 01/28/23 17:30 01/28/23 17:36 01/28/23 17:36 Temperature Pulse Rate 55 L 59 L Pulse Rate [Orthostatic Lying] Pulse Rate [Orthostatic Sitting] Respiratory Rate 24 Blood Pressure 101/43 L Blood Pressure [Orthostatic Lying] Blood Pressure [Orthostatic Sitting] Blood Pressure [Orthostatic Standing] Pulse Oximetry 95 96 Oxygen Delivery Method Room Air 01/28/23 17:40 01/28/23 17:49 01/28/23 17:49 Temperature Pulse Rate 53 L 49 L Pulse Rate [Orthostatic Lying] Pulse Rate [Orthostatic Sitting] Respiratory Rate 18 18 Blood Pressure 102/55 L Blood Pressure [Orthostatic Lying] Blood Pressure [Orthostatic Sitting] Blood Pressure [Orthostatic Standing] Pulse Oximetry 95 96 Oxygen Delivery Method 01/28/23 17:55 01/28/23 18:00 01/28/23 18:02 Temperature Pulse Rate 56 L 54 L 54 L Pulse Rate [Orthostatic Lying] Pulse Rate [Orthostatic Sitting] Respiratory Rate 22 23 21 Blood Pressure Blood Pressure [Orthostatic Lying] Blood Pressure [Orthostatic Sitting] Blood Pressure [Orthostatic Standing] Pulse Oximetry 97 96 96 Oxygen Delivery Method 01/28/23 18:04 01/28/23 18:06 01/28/23 18:08 Temperature Pulse Rate 48 L 55 L 49 L Pulse Rate [Orthostatic Lying] Pulse Rate [Orthostatic Sitting] Respiratory Rate 19 23 21 Blood Pressure Blood Pressure [Orthostatic Lying] Blood Pressure [Orthostatic Sitting] Blood Pressure [Orthostatic Standing] Pulse Oximetry 96 95 97 Oxygen Delivery Method 01/28/23 18:10 01/28/23 18:12 01/28/23 18:14 Temperature Pulse Rate 47 L 47 L 47 L Pulse Rate [Orthostatic Lying] Pulse Rate [Orthostatic Sitting] Respiratory Rate 19 19 19 Blood Pressure Blood Pressure [Orthostatic Lying] Blood Pressure [Orthostatic Sitting] Blood Pressure [Orthostatic Standing] Pulse Oximetry 96 96 96 Oxygen Delivery Method 01/28/23 18:16 Temperature Pulse Rate 47 L Pulse Rate [Orthostatic Lying] Pulse Rate [Orthostatic Sitting] Respiratory Rate Blood Pressure 110/54 L Blood Pressure [Orthostatic Lying] Blood Pressure [Orthostatic Sitting] Blood Pressure [Orthostatic Standing] Pulse Oximetry 97 Oxygen Delivery Method MDM - Weakness <Goyo Harris MD - Last Filed: 02/05/23 07:25> Lab Data 01/29/23 08:18 01/28/23 13:45 Labs: Lab Results 01/28/23 01/28/23 01/28/23 Range/Units 13:45 13:45 14:33 WBC 10.4 (4.5-11.0) X10^3/uL RBC 5.14 (4.0-5.2) X10^6/uL Hgb 14.4 (12.0-16.0) g/dL Hct 41.9 (36-46) % MCV 81.6 (80-100) fL MCH 28.1 (26-34) PG MCHC 34.4 (30-36) % RDW 14.4 (11.6-14.8) % Plt Count 210 (150-400) X10^3/uL Neut % (Auto) 79.2 H (50-75) % Lymph % (Auto) 13.5 L (25-40) % [place] % (Auto) 5.5 (3-14) % Eos % (Auto) 0.9 L (2-4) % Baso % (Auto) 0.9 (0-2) % Neut # (Auto) 8200 H (8958-4708) /uL Lymph # (Auto) 1400 (0040-2481) /uL [place] # (Auto) 600 (0-900) /uL Eos # (Auto) 100 (0-450) /uL Baso # (Auto) 100 (0-100) /uL PT 12.7 (10.1-12.7) SECONDS INR 1.1 (0.9-1.3) APTT 28 (26-36) SECONDS Sodium 132 L (137-145) mmol/L Potassium 3.4 (3.4-5.1) mmol/L Chloride 107 (98-107) mmol/L Carbon Dioxide 19 L (22-32) mmol/L BUN 23 H (7-17) mg/dL Creatinine 1.04 (0.52-1.04) mg/dL Estimated GFR > 60 (>60) mL/min BUN/Creatinine Ratio 22.1 H (6-22) Glucose 117 H (80-110) mg/dL Calcium 8.2 L (8.4-10.2) mg/dL Magnesium 1.7 (1.6-2.3) mg/dL Total Bilirubin 0.6 (0.2-1.3) mg/dL AST 27 (14-36) IU/L ALT 19 (<35) IU/L Alkaline Phosphatase 78 (38-126) U/L Total Creatine Kinase 42 (30-135) U/L Troponin I 0.042 H (0.01-0.034) ng/mL Total Protein 6.2 L (6.3-8.2) g/dL Albumin 3.4 L (3.5-5.0) g/dL Globulin 2.8 (1.7-4.1) g/dL Albumin/Globulin Ratio 1.2 (1.0-2.8) Lipase 74 (23-300) U/L U Opiates 300ng/mL cut (Negative) Ur Oxycodone Screen (Negative) Urine Methadone Screen (Negative) Ur Barbiturates Screen (Negative) U Tricyclic Antidepress (Negative) Ur Phencyclidine Scrn (Negative) Ur Amphetamines Screen (Negative) U Methamphetamines Scrn (Negative) Ur MDMA Scrn (Ecstasy) (Negative) U Benzodiazepines Scrn (Negative) Urine Cocaine Screen (Negative) U Marijuana (THC) Screen (Negative) Ethyl Alcohol ( - 10) mg/dL 01/28/23 01/28/23 01/28/23 Range/Units 18:02 18:17 19:48 WBC (4.5-11.0) X10^3/uL RBC (4.0-5.2) X10^6/uL Hgb (12.0-16.0) g/dL Hct (36-46) % MCV (80-100) fL MCH (26-34) PG MCHC (30-36) % RDW (11.6-14.8) % Plt Count (150-400) X10^3/uL Neut % (Auto) (50-75) % Lymph % (Auto) (25-40) % [place] % (Auto) (3-14) % Eos % (Auto) (2-4) % Baso % (Auto) (0-2) % Neut # (Auto) (1691-1959) /uL Lymph # (Auto) (7903-1808) /uL [place] # (Auto) (0-900) /uL Eos # (Auto) (0-450) /uL Baso # (Auto) (0-100) /uL PT (10.1-12.7) SECONDS INR (0.9-1.3) APTT (26-36) SECONDS Sodium (137-145) mmol/L Potassium (3.4-5.1) mmol/L Chloride (98-107) mmol/L Carbon Dioxide (22-32) mmol/L BUN (7-17) mg/dL Creatinine (0.52-1.04) mg/dL Estimated GFR (>60) mL/min BUN/Creatinine Ratio (6-22) Glucose (80-110) mg/dL Calcium (8.4-10.2) mg/dL Magnesium (1.6-2.3) mg/dL Total Bilirubin (0.2-1.3) mg/dL AST (14-36) IU/L ALT (<35) IU/L Alkaline Phosphatase (38-126) U/L Total Creatine Kinase 40 (30-135) U/L Troponin I 0.032 (0.01-0.034) ng/mL Total Protein (6.3-8.2) g/dL Albumin (3.5-5.0) g/dL Globulin (1.7-4.1) g/dL Albumin/Globulin Ratio (1.0-2.8) Lipase (23-300) U/L U Opiates 300ng/mL cut Negative (Negative) Ur Oxycodone Screen Negative (Negative) Urine Methadone Screen Negative (Negative) Ur Barbiturates Screen Negative (Negative) U Tricyclic Antidepress Negative (Negative) Ur Phencyclidine Scrn Negative (Negative) Ur Amphetamines Screen Negative (Negative) U Methamphetamines Scrn Negative (Negative) Ur MDMA Scrn (Ecstasy) Negative (Negative) U Benzodiazepines Scrn Negative (Negative) Urine Cocaine Screen Negative (Negative) U Marijuana (THC) Screen Negative (Negative) Ethyl Alcohol < 10 ( - 10) mg/dL Imaging Data Chest x-ray: Radiologist Impression: [address] [address] XRay Report Signed Patient: Izzy Cain MR#: [id number] : 1960 Acct:[id number] Age/Sex: 62 / F Date of Service: 01/28/23 Loc: Accession Number: [id number] ?? Procedure: XR chest 1V Ordering Provider: Goyo Harris MD PROCEDURE:? XR CHEST 1V ? INDICATIONS:? chest pain ? TECHNIQUE:? One view of the chest was acquired.? ? COMPARISON:? [facility], , CHEST 2 VIEW, 10/23/2008, 22:09. ? FINDINGS:? ? Surgical changes and devices:? None.? ? Lungs and pleura:? Lungs are clear.? No pleural effusions or pneumothorax.? ? Mediastinum:? Mediastinal contours appear normal.? Heart size is mildly prominent. ? Bones and chest wall:? No suspicious bony lesions.? Overlying soft tissues appear unremarkable.? ? ? IMPRESSION:? Portable chest within normal limits for age. ? ? Dictated by: Alba Weiss M.D. on 01/28/2023 at 14:10 ? ? Approved by: Alba Weiss M.D. on 01/28/2023 at 14:10 ? MDM Narrative Medical decision making narrative: Patient brought in by EMS from home. Complains of dizziness weakness. Patient states she accidentally took too much clonidine 2 days ago on Wednesday. She has been under a lot of stress. She states she had stress with her boyfriend. Denies denies any SI or HI. Denies taking any other medications. After history and exam [facility] CC: Dizziness weakness Complicating co-morbidities: Clonidine overdose 0.2 mg tablets Data collected from: Patient Medical records reviewed: No recent visit for this complaint Differential considered: Includes but not limited to medication overdose/accidental. Hypotension. Arrhythmia Exam documented above, pertinent findings include: Bradycardia Lab Test results independently reviewed as above. Pertinent findings: Troponin 0.042 Sodium 132 potassium 3.4 bicarb 19 BUN 23 glucose 117 magnesium 1.7 WBC 10.4 hemoglobin 14.4 Independently reviewed EKG sinus bradycardia rate 43 QT 698/QTC 589 Imaging studies independently reviewed: Chest x-ray no acute finding Consultations: 3:26 p.m. for spoke with poison control. At this time regarding QTC, give 2 g of magnesium. Will need observation admission. Spoke with Dr. Padron, cardiology, will need observation for bradycardia and agrees magnesium for QT prolongation Treatments: Magnesium sulfate Re-evaluations: Discussion: Diagnosis: 6:00 p.m.. Brennick: Sign out to Dr Devine laboratory studies repeat pending. Repeat normal saline ordered as well as troponin. Will need to review possibly with cardiology again <Casandra Devine, DO - Last Filed: 01/28/23 20:00> Lab Data Labs: Lab Results 01/28/23 01/28/23 01/28/23 Range/Units 13:45 13:45 14:33 WBC 10.4 (4.5-11.0) X10^3/uL RBC 5.14 (4.0-5.2) X10^6/uL Hgb 14.4 (12.0-16.0) g/dL Hct 41.9 (36-46) % MCV 81.6 (80-100) fL MCH 28.1 (26-34) PG MCHC 34.4 (30-36) % RDW 14.4 (11.6-14.8) % Plt Count 210 (150-400) X10^3/uL Neut % (Auto) 79.2 H (50-75) % Lymph % (Auto) 13.5 L (25-40) % [place] % (Auto) 5.5 (3-14) % Eos % (Auto) 0.9 L (2-4) % Baso % (Auto) 0.9 (0-2) % Neut # (Auto) 8200 H (8186-9502) /uL Lymph # (Auto) 1400 (0873-0971) /uL [place] # (Auto) 600 (0-900) /uL Eos # (Auto) 100 (0-450) /uL Baso # (Auto) 100 (0-100) /uL PT 12.7 (10.1-12.7) SECONDS INR 1.1 (0.9-1.3) APTT 28 (26-36) SECONDS Sodium 132 L (137-145) mmol/L Potassium 3.4 (3.4-5.1) mmol/L Chloride 107 (98-107) mmol/L Carbon Dioxide 19 L (22-32) mmol/L BUN 23 H (7-17) mg/dL Creatinine 1.04 (0.52-1.04) mg/dL Estimated GFR > 60 (>60) mL/min BUN/Creatinine Ratio 22.1 H (6-22) Glucose 117 H (80-110) mg/dL Calcium 8.2 L (8.4-10.2) mg/dL Magnesium 1.7 (1.6-2.3) mg/dL Total Bilirubin 0.6 (0.2-1.3) mg/dL AST 27 (14-36) IU/L ALT 19 (<35) IU/L Alkaline Phosphatase 78 (38-126) U/L Total Creatine Kinase 42 (30-135) U/L Troponin I 0.042 H (0.01-0.034) ng/mL Total Protein 6.2 L (6.3-8.2) g/dL Albumin 3.4 L (3.5-5.0) g/dL Globulin 2.8 (1.7-4.1) g/dL Albumin/Globulin Ratio 1.2 (1.0-2.8) Lipase 74 (23-300) U/L U Opiates 300ng/mL cut (Negative) Ur Oxycodone Screen (Negative) Urine Methadone Screen (Negative) Ur Barbiturates Screen (Negative) U Tricyclic Antidepress (Negative) Ur Phencyclidine Scrn (Negative) Ur Amphetamines Screen (Negative) U Methamphetamines Scrn (Negative) Ur MDMA Scrn (Ecstasy) (Negative) U Benzodiazepines Scrn (Negative) Urine Cocaine Screen (Negative) U Marijuana (THC) Screen (Negative) Ethyl Alcohol ( - 10) mg/dL 01/28/23 01/28/23 01/28/23 Range/Units 18:02 18:17 19:48 WBC (4.5-11.0) X10^3/uL RBC (4.0-5.2) X10^6/uL Hgb (12.0-16.0) g/dL Hct (36-46) % MCV (80-100) fL MCH (26-34) PG MCHC (30-36) % RDW (11.6-14.8) % Plt Count (150-400) X10^3/uL Neut % (Auto) (50-75) % Lymph % (Auto) (25-40) % [place] % (Auto) (3-14) % Eos % (Auto) (2-4) % Baso % (Auto) (0-2) % Neut # (Auto) (0334-5068) /uL Lymph # (Auto) (7093-2312) /uL [place] # (Auto) (0-900) /uL Eos # (Auto) (0-450) /uL Baso # (Auto) (0-100) /uL PT (10.1-12.7) SECONDS INR (0.9-1.3) APTT (26-36) SECONDS Sodium (137-145) mmol/L Potassium (3.4-5.1) mmol/L Chloride (98-107) mmol/L Carbon Dioxide (22-32) mmol/L BUN (7-17) mg/dL Creatinine (0.52-1.04) mg/dL Estimated GFR (>60) mL/min BUN/Creatinine Ratio (6-22) Glucose (80-110) mg/dL Calcium (8.4-10.2) mg/dL Magnesium (1.6-2.3) mg/dL Total Bilirubin (0.2-1.3) mg/dL AST (14-36) IU/L ALT (<35) IU/L Alkaline Phosphatase (38-126) U/L Total Creatine Kinase 40 (30-135) U/L Troponin I 0.032 (0.01-0.034) ng/mL Total Protein (6.3-8.2) g/dL Albumin (3.5-5.0) g/dL Globulin (1.7-4.1) g/dL Albumin/Globulin Ratio (1.0-2.8) Lipase (23-300) U/L U Opiates 300ng/mL cut Negative (Negative) Ur Oxycodone Screen Negative (Negative) Urine Methadone Screen Negative (Negative) Ur Barbiturates Screen Negative (Negative) U Tricyclic Antidepress Negative (Negative) Ur Phencyclidine Scrn Negative (Negative) Ur Amphetamines Screen Negative (Negative) U Methamphetamines Scrn Negative (Negative) Ur MDMA Scrn (Ecstasy) Negative (Negative) U Benzodiazepines Scrn Negative (Negative) Urine Cocaine Screen Negative (Negative) U Marijuana (THC) Screen Negative (Negative) Ethyl Alcohol < 10 ( - 10) mg/dL ECG Data Interpretation: EKG 1 sinus bradycardia rate of 43 CO 186 QRS 82 QTC 589. T-wave inversion V1 2 and prolonged QT. no patient does have prior EKG from 05/07/2017 which does not have T-wave changes consistent with today's. EKG 2. Rate of 48 CO 202 QRS is 78 QTC 434. No dynamic changes from 1st to 2nd EKG appears similar to 1st. EKG 3. Sinus bradycardia rate of 49 CO 182 QRS is 78 QTC 558. No acute dynamic changes appreciated. [facility] Narrative Medical decision making narrative: Patient brought in by EMS from home. Complains of dizziness weakness. Patient states she accidentally took too much clonidine 2 days ago on Wednesday. She has been under a lot of stress. She states she had stress with her boyfriend. Denies denies any SI or HI. Denies taking any other medications. After history and exam [facility] CC: Dizziness weakness Complicating co-morbidities: Clonidine overdose 0.2 mg tablets Data collected from: Patient Medical records reviewed: No recent visit for this complaint Differential considered: Includes but not limited to medication overdose/accidental. Hypotension. Arrhythmia Exam documented above, pertinent findings include: Bradycardia Lab Test results independently reviewed as above. Pertinent findings: Troponin 0.042 Sodium 132 potassium 3.4 bicarb 19 BUN 23 glucose 117 magnesium 1.7 WBC 10.4 hemoglobin 14.4 Independently reviewed EKG sinus bradycardia rate 43 QT 698/QTC 589 Imaging studies independently reviewed: Chest x-ray no acute finding Consultations: 3:26 p.m. for spoke with poison control. At this time regarding QTC, give 2 g of magnesium. Will need observation admission. Spoke with Dr. Padron, cardiology, will need observation for bradycardia and agrees magnesium for QT prolongation Treatments: Magnesium sulfate Re-evaluations: Discussion: Diagnosis: 6:00 p.m.. Kimberly: Sign out to Dr Devine laboratory studies repeat pending. Repeat normal saline ordered as well as troponin. Will need to review possibly with cardiology again 01/28/23 Sybil: Patient signed out to myself by Dr. Rogers. Patient seen and evaluated by myself. Patient physical examined by myself. Patient reportedly overdose on clonidine 2 days prior she has bradycardia and some orthostatic hypotension here in the department. She does appear to have some ST change compared to prior. Patient was recommended recent magnesium from poison control she received which did seem to improve her rate somewhat while she is been here as well as her QT. patient's other labs did not show any other acute changes besides troponin of 0.042 repeat is 0.032. Renal function is appropriate CO2 was 19 sodium 132. LFTs otherwise normal. CBC and coags are negative. ETOH is negative. Chest x-ray shows no acute change. He is feeling somewhat improved after some fluids had a 2 L ordered. QT did appear to improve even on 3rd EKG. EKGs were reviewed patient does have a change from 05/07/2017 particularly in lateral leads. Patient has not had any she dynamic changes today but does have changed from 2017 to today. Reconsulted with Dr. Ruiz from cardiology: Agrees with plan for cardiac observation unclear if this is truly the cause of her symptoms. Patient denies ingestion of any other medications. She does take prazosin daily, amlodipine along with her Catapres, sertraline and uses albuterol and Dulera as needed. Spoke with Dr. Paul who accepts for observation. Discussed recommendations from Cardiology. Discussed patient has not had any chest pain no shortness of breath she did have some sweatiness that she describes even happening before the Catapres. Patient has had lightheadedness but no syncope but near syncope. Discharge Plan Departure Patient Disposition: Admitted as Observation Clinical Impression: Symptomatic bradycardia Admit Date/Time: 01/28/23 19:58 Admit Provider: Adriel Paul
[2023-01-28] MEDS: MAGNESIUM SULFATE 2 GM/50 ML PIGGYBACK IV (16:04)
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
[2023-01-28] MEDS: SODIUM CHLORIDE 0.9% 1,000 ML 1000 ML IV (18:14)
--- NOTE | 2023-01-28 18:19 | PC.NURSE ---
pt received 1000 cc normal saline from the field. ivf's finished infusing while in er. Dr. Harris aware of orthostatics. another liter of IVF's hung. pt's HR , sinus bradycardia 46-49, bp stable.
[2023-01-28 18:27] LABS: Ethanol (ETOH) < 10 mg/dL
[2023-01-28 18:27] LABS: Creatine Kinase 40 U/L (30-135)
[2023-01-28 18:39] LABS: Troponin I 0.032 ng/mL (0.01-0.034)
--- NOTE | 2023-01-28 19:58 | PC.NURSE ---
Got up patient to the commode. Patient eas able to sit on the edge of bed and stand up without assistance, denied dizziness or SOB. After getting back in to bed, patient stated she feels dizzy. Dr. Devine notified.
[2023-01-28 20:13] LABS: UR Morphine/Opiate cutoff 300 Negative (Negative); Ur Creatinine Normal (Normal); Ur Specific Gravity Normal (Normal); Urine Amphetamines Negative (Negative); Urine Barbiturates Negative (Negative); Urine Benzodiazepines Negative (Negative); Urine Cocaine Negative (Negative); Urine MDMA Negative (Negative); Urine Methadone Negative (Negative); Urine Methamphetamines Negative (Negative); Urine Oxycodone Negative (Negative); Urine Phencyclidine Negative (Negative); Urine Tetrahydrocannabinol Negative (Negative); Urine Tricyclic Antidepressant Negative (Negative); Urine pH Normal (Normal)
--- NOTE | 2023-01-28 22:04 | P.HP_ITS ---
History of Present Illness History of Present Illness Chief complaint: Weakness, dehydration Narrative: 62 years old female with history of hypertension, anxiety, depression, presented to the ER with dizziness and generalized weakness after she took more than 10 tablets of clonidine 0.2 mg 2 days ago. Denies any SI or HI. Reports being under lots of stress lately. She take clonidine as needed for anxiety. Denies any other symptoms. In the ER she was found to be bradycardic with increased QT interval. She was given 2 g of magnesium and was decided to be admitted for observation. Cardiology was consulted over the phone. [facility] Social History Smoking Status: Current every day smoker Meds Home Medications and Allergies Home Medications Medication Instructions Recorded Confirmed Type albuterol sulfate 90 mcg/actuation 1 puff INH Q4HP PRN #1 ea 01/31/16 08/31/22 Rx aerosol inhaler (Ventolin HFA) ibuprofen 800 mg tablet 800 mg PO TIDP PRN #30 tabs 02/14/16 08/31/22 Rx amlodipine 10 mg PO 1XD 08/31/22 01/28/23 History mometasone-formoterol [Dulera] inhalation 08/31/22 08/31/22 History prazosin 2 mg PO 1XD 08/31/22 01/28/23 History sertraline [Zoloft] 100 mg PO 1XD 08/31/22 01/28/23 History doxycycline hyclate 100 mg capsule 400 mg PO 1XD 01/28/23 01/28/23 History ferrous sulfate 325 mg (65 mg mg 01/28/23 History iron) tablet (FeroSul) Allergies Allergy/AdvReac Type Severity Reaction Status Date / Time Penicillins Allergy Unknown Verified 11/03/22 10:21 Sulfa (Sulfonamide Allergy Unknown Verified 11/03/22 10:21 Antibiotics) ibuprofen AdvReac Unknown Verified 11/03/22 10:22 Review of Systems Review of Systems ROS: Yes All systems reviewed with the patient and are negative except as otherwise documented Constitutional Constitutional: Reports as per HPI and Reports system reviewed and no additional complaints, except as documented Eyes Eyes: Reports as per HPI and Reports system reviewed and no additional complaints, except as documented ENT Ears, Nose, Mouth, and Throat: Yes as per HPI and Yes system reviewed and no additional complaints, except as documented Cardiovascular Cardiovascular: Reports system reviewed and no additional complaints, except as documented Respiratory Respiratory: Reports system reviewed and no additional complaints, except as documented Gastrointestinal Gastrointestinal: Reports system reviewed and no additional complaints, except as documented Genitourinary Genitourinary: Reports system reviewed and no additional complaints, except as documented Musculoskeletal Musculoskeletal: Reports system reviewed and no additional complaints, except as documented, Reports abnormal gait and Reports numbness Neurologic Neurologic: Reports system reviewed and no additional complaints, except as documented, Reports abnormal gait, Reports confusion and Reports numbness Psychiatric Psychiatric: Reports system reviewed and no additional complaints, except as documented and Reports confusion Exam Vital Signs (past 8 hours): - 01/28/23 14:13 01/28/23 14:13 01/28/23 14:30 Pulse Rate 46 L 45 L Pulse Rate [Orthostatic Lying] Pulse Rate [Orthostatic Sitting] Respiratory Rate 17 17 Blood Pressure 146/63 H Blood Pressure [Orthostatic Lying] Blood Pressure [Orthostatic Sitting] Blood Pressure [Orthostatic Standing] Pulse Oximetry 96 95 Oxygen Delivery Method Room Air 01/28/23 15:00 01/28/23 15:00 01/28/23 15:30 Pulse Rate 44 L 48 L Pulse Rate [Orthostatic Lying] Pulse Rate [Orthostatic Sitting] Respiratory Rate 18 23 Blood Pressure 120/59 L Blood Pressure [Orthostatic Lying] Blood Pressure [Orthostatic Sitting] Blood Pressure [Orthostatic Standing] Pulse Oximetry 96 97 Oxygen Delivery Method 01/28/23 15:31 01/28/23 15:31 01/28/23 16:00 Pulse Rate 45 L Pulse Rate [Orthostatic Lying] Pulse Rate [Orthostatic Sitting] Respiratory Rate 23 Blood Pressure 122/59 L 130/62 Blood Pressure [Orthostatic Lying] Blood Pressure [Orthostatic Sitting] Blood Pressure [Orthostatic Standing] Pulse Oximetry 97 Oxygen Delivery Method 01/28/23 16:00 01/28/23 17:14 01/28/23 16:02 Pulse Rate 43 L 43 L Pulse Rate [Orthostatic Lying] 58 L Pulse Rate [Orthostatic Sitting] 48 L Respiratory Rate 16 16 Blood Pressure Blood Pressure [Orthostatic Lying] 122/59 L Blood Pressure [Orthostatic Sitting] 113/66 Blood Pressure [Orthostatic Standing] 97/46 L Pulse Oximetry 97 97 Oxygen Delivery Method 01/28/23 16:04 01/28/23 16:06 01/28/23 16:08 Pulse Rate 43 L 42 L 46 L Pulse Rate [Orthostatic Lying] Pulse Rate [Orthostatic Sitting] Respiratory Rate 20 23 20 Blood Pressure Blood Pressure [Orthostatic Lying] Blood Pressure [Orthostatic Sitting] Blood Pressure [Orthostatic Standing] Pulse Oximetry 97 97 97 Oxygen Delivery Method 01/28/23 16:10 01/28/23 16:12 01/28/23 16:12 Pulse Rate 49 L 46 L Pulse Rate [Orthostatic Lying] Pulse Rate [Orthostatic Sitting] Respiratory Rate 23 25 H Blood Pressure 125/69 Blood Pressure [Orthostatic Lying] Blood Pressure [Orthostatic Sitting] Blood Pressure [Orthostatic Standing] Pulse Oximetry 97 97 Oxygen Delivery Method 01/28/23 16:14 01/28/23 16:15 01/28/23 16:15 Pulse Rate 46 L 49 L Pulse Rate [Orthostatic Lying] Pulse Rate [Orthostatic Sitting] Respiratory Rate 20 30 H Blood Pressure 122/67 Blood Pressure [Orthostatic Lying] Blood Pressure [Orthostatic Sitting] Blood Pressure [Orthostatic Standing] Pulse Oximetry 97 97 Oxygen Delivery Method 01/28/23 16:16 01/28/23 16:18 01/28/23 16:20 Pulse Rate 57 L 57 L 63 Pulse Rate [Orthostatic Lying] Pulse Rate [Orthostatic Sitting] Respiratory Rate 46 H Blood Pressure Blood Pressure [Orthostatic Lying] Blood Pressure [Orthostatic Sitting] Blood Pressure [Orthostatic Standing] Pulse Oximetry 96 94 97 Oxygen Delivery Method 01/28/23 16:22 01/28/23 16:24 01/28/23 16:25 Pulse Rate 67 65 57 L Pulse Rate [Orthostatic Lying] Pulse Rate [Orthostatic Sitting] Respiratory Rate Blood Pressure Blood Pressure [Orthostatic Lying] Blood Pressure [Orthostatic Sitting] Blood Pressure [Orthostatic Standing] Pulse Oximetry 97 98 96 Oxygen Delivery Method 01/28/23 16:25 01/28/23 16:26 01/28/23 16:28 Pulse Rate 53 L 47 L Pulse Rate [Orthostatic Lying] Pulse Rate [Orthostatic Sitting] Respiratory Rate 15 26 H Blood Pressure 97/46 L Blood Pressure [Orthostatic Lying] Blood Pressure [Orthostatic Sitting] Blood Pressure [Orthostatic Standing] Pulse Oximetry 96 96 Oxygen Delivery Method 01/28/23 16:30 01/28/23 16:31 01/28/23 16:31 Pulse Rate 46 L 52 L Pulse Rate [Orthostatic Lying] Pulse Rate [Orthostatic Sitting] Respiratory Rate 26 H 20 Blood Pressure 110/59 L Blood Pressure [Orthostatic Lying] Blood Pressure [Orthostatic Sitting] Blood Pressure [Orthostatic Standing] Pulse Oximetry 96 95 Oxygen Delivery Method 01/28/23 16:32 01/28/23 16:34 01/28/23 16:36 Pulse Rate 43 L 45 L Pulse Rate [Orthostatic Lying] Pulse Rate [Orthostatic Sitting] Respiratory Rate 19 19 Blood Pressure 122/59 L Blood Pressure [Orthostatic Lying] Blood Pressure [Orthostatic Sitting] Blood Pressure [Orthostatic Standing] Pulse Oximetry 95 95 Oxygen Delivery Method 01/28/23 16:36 01/28/23 16:38 01/28/23 16:40 Pulse Rate 43 L 45 L 97 H Pulse Rate [Orthostatic Lying] Pulse Rate [Orthostatic Sitting] Respiratory Rate 20 18 26 H Blood Pressure Blood Pressure [Orthostatic Lying] Blood Pressure [Orthostatic Sitting] Blood Pressure [Orthostatic Standing] Pulse Oximetry 95 95 95 Oxygen Delivery Method 01/28/23 16:42 01/28/23 16:44 01/28/23 16:46 Pulse Rate 52 L 53 L 55 L Pulse Rate [Orthostatic Lying] Pulse Rate [Orthostatic Sitting] Respiratory Rate 26 H 35 H 31 H Blood Pressure Blood Pressure [Orthostatic Lying] Blood Pressure [Orthostatic Sitting] Blood Pressure [Orthostatic Standing] Pulse Oximetry 96 96 95 Oxygen Delivery Method 01/28/23 16:48 01/28/23 16:50 01/28/23 16:52 Pulse Rate 67 56 L 49 L Pulse Rate [Orthostatic Lying] Pulse Rate [Orthostatic Sitting] Respiratory Rate 29 H 26 H 32 H Blood Pressure Blood Pressure [Orthostatic Lying] Blood Pressure [Orthostatic Sitting] Blood Pressure [Orthostatic Standing] Pulse Oximetry 96 95 95 Oxygen Delivery Method 01/28/23 16:54 01/28/23 16:55 01/28/23 16:55 Pulse Rate 44 L 45 L Pulse Rate [Orthostatic Lying] Pulse Rate [Orthostatic Sitting] Respiratory Rate 16 17 Blood Pressure 112/54 L Blood Pressure [Orthostatic Lying] Blood Pressure [Orthostatic Sitting] Blood Pressure [Orthostatic Standing] Pulse Oximetry 95 96 Oxygen Delivery Method 01/28/23 16:56 01/28/23 16:58 01/28/23 17:00 Pulse Rate 42 L 44 L Pulse Rate [Orthostatic Lying] Pulse Rate [Orthostatic Sitting] Respiratory Rate 18 26 H Blood Pressure 113/66 Blood Pressure [Orthostatic Lying] Blood Pressure [Orthostatic Sitting] Blood Pressure [Orthostatic Standing] Pulse Oximetry 95 94 Oxygen Delivery Method 01/28/23 17:00 01/28/23 17:02 01/28/23 17:04 Pulse Rate 39 L 40 L 45 L Pulse Rate [Orthostatic Lying] Pulse Rate [Orthostatic Sitting] Respiratory Rate 18 18 18 Blood Pressure Blood Pressure [Orthostatic Lying] Blood Pressure [Orthostatic Sitting] Blood Pressure [Orthostatic Standing] Pulse Oximetry 95 96 96 Oxygen Delivery Method 01/28/23 17:05 01/28/23 17:05 01/28/23 17:06 Pulse Rate 40 L Pulse Rate [Orthostatic Lying] Pulse Rate [Orthostatic Sitting] Respiratory Rate 18 18 Blood Pressure 117/57 L Blood Pressure [Orthostatic Lying] Blood Pressure [Orthostatic Sitting] Blood Pressure [Orthostatic Standing] Pulse Oximetry 95 96 Oxygen Delivery Method 01/28/23 17:10 01/28/23 17:10 01/28/23 17:16 Pulse Rate 49 L 49 L Pulse Rate [Orthostatic Lying] Pulse Rate [Orthostatic Sitting] Respiratory Rate 20 21 Blood Pressure 115/52 L Blood Pressure [Orthostatic Lying] Blood Pressure [Orthostatic Sitting] Blood Pressure [Orthostatic Standing] Pulse Oximetry 96 95 Oxygen Delivery Method Room Air 01/28/23 17:16 01/28/23 17:24 01/28/23 17:24 Pulse Rate 49 L Pulse Rate [Orthostatic Lying] Pulse Rate [Orthostatic Sitting] Respiratory Rate 18 Blood Pressure 117/74 105/55 L Blood Pressure [Orthostatic Lying] Blood Pressure [Orthostatic Sitting] Blood Pressure [Orthostatic Standing] Pulse Oximetry 95 Oxygen Delivery Method 01/28/23 17:26 01/28/23 17:30 01/28/23 17:30 Pulse Rate 55 L Pulse Rate [Orthostatic Lying] Pulse Rate [Orthostatic Sitting] Respiratory Rate 17 Blood Pressure 91/55 L Blood Pressure [Orthostatic Lying] Blood Pressure [Orthostatic Sitting] Blood Pressure [Orthostatic Standing] Pulse Oximetry 96 95 Oxygen Delivery Method 01/28/23 17:36 01/28/23 17:36 01/28/23 17:40 Pulse Rate 59 L 53 L Pulse Rate [Orthostatic Lying] Pulse Rate [Orthostatic Sitting] Respiratory Rate 24 18 Blood Pressure 101/43 L Blood Pressure [Orthostatic Lying] Blood Pressure [Orthostatic Sitting] Blood Pressure [Orthostatic Standing] Pulse Oximetry 96 95 Oxygen Delivery Method Room Air 01/28/23 17:49 01/28/23 17:49 01/28/23 17:55 Pulse Rate 49 L 56 L Pulse Rate [Orthostatic Lying] Pulse Rate [Orthostatic Sitting] Respiratory Rate 18 22 Blood Pressure 102/55 L Blood Pressure [Orthostatic Lying] Blood Pressure [Orthostatic Sitting] Blood Pressure [Orthostatic Standing] Pulse Oximetry 96 97 Oxygen Delivery Method 01/28/23 18:00 01/28/23 18:02 01/28/23 18:04 Pulse Rate 54 L 54 L 48 L Pulse Rate [Orthostatic Lying] Pulse Rate [Orthostatic Sitting] Respiratory Rate 23 21 19 Blood Pressure Blood Pressure [Orthostatic Lying] Blood Pressure [Orthostatic Sitting] Blood Pressure [Orthostatic Standing] Pulse Oximetry 96 96 96 Oxygen Delivery Method 01/28/23 18:06 01/28/23 18:08 01/28/23 18:10 Pulse Rate 55 L 49 L 47 L Pulse Rate [Orthostatic Lying] Pulse Rate [Orthostatic Sitting] Respiratory Rate 23 21 19 Blood Pressure Blood Pressure [Orthostatic Lying] Blood Pressure [Orthostatic Sitting] Blood Pressure [Orthostatic Standing] Pulse Oximetry 95 97 96 Oxygen Delivery Method 01/28/23 18:12 01/28/23 18:14 01/28/23 18:16 Pulse Rate 47 L 47 L 47 L Pulse Rate [Orthostatic Lying] Pulse Rate [Orthostatic Sitting] Respiratory Rate 19 19 Blood Pressure 110/54 L Blood Pressure [Orthostatic Lying] Blood Pressure [Orthostatic Sitting] Blood Pressure [Orthostatic Standing] Pulse Oximetry 96 96 97 Oxygen Delivery Method 01/28/23 19:00 01/28/23 19:00 01/28/23 19:06 Pulse Rate 44 L 44 L Pulse Rate [Orthostatic Lying] Pulse Rate [Orthostatic Sitting] Respiratory Rate 35 H 32 H Blood Pressure 103/53 L Blood Pressure [Orthostatic Lying] Blood Pressure [Orthostatic Sitting] Blood Pressure [Orthostatic Standing] Pulse Oximetry 97 97 Oxygen Delivery Method 01/28/23 19:06 01/28/23 19:10 01/28/23 19:10 Pulse Rate 45 L Pulse Rate [Orthostatic Lying] Pulse Rate [Orthostatic Sitting] Respiratory Rate 31 H Blood Pressure 101/50 L 104/53 L Blood Pressure [Orthostatic Lying] Blood Pressure [Orthostatic Sitting] Blood Pressure [Orthostatic Standing] Pulse Oximetry 96 Oxygen Delivery Method Room Air 01/28/23 19:15 01/28/23 19:15 01/28/23 19:20 Pulse Rate 45 L Pulse Rate [Orthostatic Lying] Pulse Rate [Orthostatic Sitting] Respiratory Rate 32 H Blood Pressure 102/50 L 106/57 L Blood Pressure [Orthostatic Lying] Blood Pressure [Orthostatic Sitting] Blood Pressure [Orthostatic Standing] Pulse Oximetry 96 Oxygen Delivery Method Room Air 01/28/23 19:20 01/28/23 19:25 01/28/23 19:25 Pulse Rate 50 L 46 L Pulse Rate [Orthostatic Lying] Pulse Rate [Orthostatic Sitting] Respiratory Rate 26 H 20 Blood Pressure 108/56 L Blood Pressure [Orthostatic Lying] Blood Pressure [Orthostatic Sitting] Blood Pressure [Orthostatic Standing] Pulse Oximetry 96 96 Oxygen Delivery Method Room Air Room Air 01/28/23 19:30 01/28/23 19:30 01/28/23 19:36 Pulse Rate 51 L 48 L Pulse Rate [Orthostatic Lying] Pulse Rate [Orthostatic Sitting] Respiratory Rate 21 29 H Blood Pressure 102/53 L Blood Pressure [Orthostatic Lying] Blood Pressure [Orthostatic Sitting] Blood Pressure [Orthostatic Standing] Pulse Oximetry 97 97 Oxygen Delivery Method Room Air Room Air 01/28/23 19:36 01/28/23 19:40 01/28/23 19:40 Pulse Rate 46 L Pulse Rate [Orthostatic Lying] Pulse Rate [Orthostatic Sitting] Respiratory Rate 17 Blood Pressure 112/54 L 110/55 L Blood Pressure [Orthostatic Lying] Blood Pressure [Orthostatic Sitting] Blood Pressure [Orthostatic Standing] Pulse Oximetry 97 Oxygen Delivery Method 01/28/23 20:00 01/28/23 20:00 01/28/23 20:20 Pulse Rate 46 L Pulse Rate [Orthostatic Lying] Pulse Rate [Orthostatic Sitting] Respiratory Rate 17 Blood Pressure 108/53 L 111/58 L Blood Pressure [Orthostatic Lying] Blood Pressure [Orthostatic Sitting] Blood Pressure [Orthostatic Standing] Pulse Oximetry 96 Oxygen Delivery Method Room Air 01/28/23 20:20 01/28/23 20:30 01/28/23 20:41 Pulse Rate 46 L 47 L 46 L Pulse Rate [Orthostatic Lying] Pulse Rate [Orthostatic Sitting] Respiratory Rate 17 16 16 Blood Pressure Blood Pressure [Orthostatic Lying] Blood Pressure [Orthostatic Sitting] Blood Pressure [Orthostatic Standing] Pulse Oximetry 96 96 96 Oxygen Delivery Method Room Air Room Air 01/28/23 20:41 01/28/23 21:00 01/28/23 21:00 Pulse Rate 44 L Pulse Rate [Orthostatic Lying] Pulse Rate [Orthostatic Sitting] Respiratory Rate 16 Blood Pressure 118/56 L 119/57 L Blood Pressure [Orthostatic Lying] Blood Pressure [Orthostatic Sitting] Blood Pressure [Orthostatic Standing] Pulse Oximetry 96 Oxygen Delivery Method Room Air Oxygen Delivery Method Room Air Const General: cooperative, comfortable and well developed Orientation: alert and oriented x3 HENMT Head: normal to inspection, normocephalic and atraumatic Face and sinus: normal facial exam Mouth: oral mucosae normal and moist mucous membranes Throat: posterior oropharynx normal Eyes General: appearance normal, both eyes and all related structures Pupils: PERRL EOM: EOM intact bilaterally Neck Neck: normal visual inspection and full ROM Chest Chest: normal inspection of the chest Resp Effort & Inspection: normal respiratory effort and able to speak in complete sentences Auscultation: clear to auscultation bilaterally Cardio Palpation: normal PMI Rate: regular rate Rhythm: regular rhythm Heart Sounds: S1 normal and S2 normal GI Inspection: normal to inspection Palpation: soft and no hepatosplenomegaly Auscultation: normal bowel sounds Skin General: no rashes or lesions noted Lesions: no lesions Rashes: no rashes Trauma: no lacerations or abrasions Neuro General: patient alert, patient awake, patient oriented x3 and no focal motor deficits Cranial Nerves: CN's II-XI intact bilaterally Cognition: normal cognition Speech: speech normal Gait: normal gait Motor: muscle tone normal throughout Sensory Exam: no sensory deficits noted Extrem General: full ROM and no calf tenderness Psych Appearance: grossly normal Mental Status: mental status grossly normal Speech and Movement: speech and movement normal Objective Labs 01/28/23 13:45 01/28/23 13:45 Labs: Laboratory Results - last 24 hr 08/31/23 08/31/23 08/31/23 13:45 13:45 14:33 WBC 10.4 RBC 5.14 Hgb 14.4 Hct 41.9 MCV 81.6 MCH 28.1 MCHC 34.4 RDW 14.4 Plt Count 210 Neut % (Auto) 79.2 H Lymph % (Auto) 13.5 L [place] % (Auto) 5.5 Eos % (Auto) 0.9 L Baso % (Auto) 0.9 Neut # (Auto) 8200 H Lymph # (Auto) 1400 [place] # (Auto) 600 Eos # (Auto) 100 Baso # (Auto) 100 PT 12.7 INR 1.1 APTT 28 Sodium 132 L Potassium 3.4 Chloride 107 Carbon Dioxide 19 L BUN 23 H Creatinine 1.04 Estimated GFR > 60 BUN/Creatinine Ratio 22.1 H Glucose 117 H Calcium 8.2 L Magnesium 1.7 Total Bilirubin 0.6 AST 27 ALT 19 Alkaline Phosphatase 78 Total Creatine Kinase 42 Troponin I 0.042 H Total Protein 6.2 L Albumin 3.4 L Globulin 2.8 Albumin/Globulin Ratio 1.2 Lipase 74 U Opiates 300ng/mL cut Ur Oxycodone Screen Urine Methadone Screen Ur Barbiturates Screen U Tricyclic Antidepress Ur Phencyclidine Scrn Ur Amphetamines Screen U Methamphetamines Scrn Ur MDMA Scrn (Ecstasy) U Benzodiazepines Scrn Urine Cocaine Screen U Marijuana (THC) Screen Ethyl Alcohol 01/28/23 01/28/23 01/28/23 18:02 18:17 19:48 WBC RBC Hgb Hct MCV MCH MCHC RDW Plt Count Neut % (Auto) Lymph % (Auto) [place] % (Auto) Eos % (Auto) Baso % (Auto) Neut # (Auto) Lymph # (Auto) [place] # (Auto) Eos # (Auto) Baso # (Auto) PT INR APTT Sodium Potassium Chloride Carbon Dioxide BUN Creatinine Estimated GFR BUN/Creatinine Ratio Glucose Calcium Magnesium Total Bilirubin AST ALT Alkaline Phosphatase Total Creatine Kinase 40 Troponin I 0.032 Total Protein Albumin Globulin Albumin/Globulin Ratio Lipase U Opiates 300ng/mL cut Negative Ur Oxycodone Screen Negative Urine Methadone Screen Negative Ur Barbiturates Screen Negative U Tricyclic Antidepress Negative Ur Phencyclidine Scrn Negative Ur Amphetamines Screen Negative U Methamphetamines Scrn Negative Ur MDMA Scrn (Ecstasy) Negative U Benzodiazepines Scrn Negative Urine Cocaine Screen Negative U Marijuana (THC) Screen Negative Ethyl Alcohol < 10 Assessment & Plan Assessment and plan (1) Symptomatic bradycardia: Problem details: Most likely due to clonidine overdose Status: Acute Plan: -Telemetry -Monitor electrolytes -EKG in the morning -Ativan as needed's for anxiety -Repeat troponin in the morning -Hold amlodipine -Cardiology consult follow-up (2) Hypertension: Status: Acute Plan: -Hold amlodipine for now due to symptomatic bradycardia -Hydralazine as needed (3) Chronic obstructive pulmonary disease: Status: None Plan: - Albuterol as needed -Nicotine patch per protocol - Oxygen supplement as needed -Nicotine patch Time Spent With Patient Time with patient: 50 to 69 minutes with 50% spent counseling/coordinating care Quality VTE Deep Vein Thrombosis/Pulmonary Embolism Present on Admission: No MIPS - Admit I confirm the patient?s Advance Care Plan is present, Code status is documented, Surrogate decision maker is in patient?s record [If Yes, STOP here]: Yes MIPS - Meds 'Current medications' to include all prescriptions, [id number] products, herbals, cannabis/cannabidiol products, and vitamin/mineral/dietary (nutrition al) supplements. I have utilized all available resources to obtain, update, or review the patient?s current medications. [If Yes, STOP here]: Yes
[2023-01-29] MEDS: LORazepam 0.5 MG TABLET PO ×2 (00:44→08:59)
[2023-01-29] MEDS: SODIUM CHLORIDE 0.9% 1,000 ML 100 ML IV (00:44)
--- NOTE | 2023-01-29 01:34 | PC.NURSE ---
[employer]lipper Patient arrived from ER via wheelchair at 2145. Pt was very agitated after medex-Tele visit with provider. Pt refused any assessments, refused to answer any questions and told RN to Get the F#$% Out of here. RN educated Pt on layout of room, how to use call light and placed within reach. Pt verbalized understanding and RN left room. Provider notified of situation, Dr. Paul okayed to have minimal contact with patient and to allow pt to get as much rest as possible.
[2023-01-29 08:16] VITALS: BP 106/46; PULSE 56; RESP 16; TEMP 36.2; O2SAT 96
[2023-01-29 08:25] LABS: Add Manual Diff / Slide Review NO; Basophils Absolute Auto 0 /uL (0-100); Basophils Percent Auto 0.8 % (0-2); Eosinophils Absolute Auto 100 /uL (0-450); Eosinophils Percent Auto 1.5 % (2-4); Hematocrit 36.4 % (36-46); Hemoglobin 12.4 g/dL (12.0-16.0); Lymphocytes Absolute Auto 1900 /uL (1100-4500); Lymphocytes Percent Auto 29.1 % (25-40); Mean Corpuscular HGB Conc 34.1 % (30-36); Mean Corpuscular Hemoglobin 28.2 PG (26-34); Mean Corpuscular Volume 82.7 fL (80-100); Monocytes Absolute Auto 400 /uL (0-900); Monocytes Percent Auto 6.9 % (3-14); Neutrophils Absolute Auto 4000 /uL (1500-7000); Neutrophils Percent Auto 61.7 % (50-75); Platelet Count 173 X10^3/uL (150-400); Red Blood Cell Count 4.41 X10^6/uL (4.0-5.2); Red Cell Distribution Width 14.7 % (11.6-14.8); White Blood Cell Count 6.5 X10^3/uL (4.5-11.0)
[2023-01-29 08:37] LABS: Magnesium 1.9 mg/dL (1.6-2.3)
[2023-01-29 08:46] LABS: Troponin I 0.014 ng/mL (0.01-0.034)
[2023-01-29] MEDS: NICOTINE 21 MG PATCH TOP (08:58)
[2023-01-29 09:00] VITALS: BMI 24.7
[2023-01-29 13:00] VITALS: BP 105/50; PULSE 79; RESP 16; O2SAT 95
--- NOTE | 2023-01-29 14:25 | CM.DPC ---
DCP Discharge Home Per MD, pt no longer having bradycardia and medically stable to d/c home today and will discontinue pt's clonidine as does not appear to be effective with her anxiety and risk for medical complications. SW met bedside with pt and she confirms she is agreeable to d/c home today to her SUV/RV situation and comfortable with taking the bus with her bus pass out to [facility] park today. Pt ambulatory and has her belongings and does not feel she has any further discharge needs. RN took pt down to the main entrance to catch the bus. Plan: Patient discharged back to her living situation and no further SW needs at this time. ISRA Lazaro
--- NOTE | 2023-01-29 17:39 | P.DS_ITS ---
History of Present Illness History of Present Illness Date Patient Seen: 01/29/23 Time Patient Seen: 09:30 Chief complaint: Weakness, dehydration Narrative: Per admitting provider, 62 years old female with history of hypertension, anxiety, depression, presented to the ER with dizziness and generalized weakness after she took more than 10 tablets of clonidine 0.2 mg 2 days ago. Denies any SI or HI. Reports being under lots of stress lately. She take clonidine as needed for anxiety. Denies any other symptoms. In the ER she was found to be bradycardic with increased QT interval. She was given 2 g of magnesium and was decided to be admitted for observation. Cardiology was consulted over the phone. Discharge Providers Provider Date of admission: 01/28/23 19:58 Discharge Date: 01/29/23 Primary care physician: Gerald Kan MD Consults: 01/28/23 15:25 Consult to [facility] - Clerk Travel Reservations Stat Comment: Anxiety 01/28/23 21:41 Consult to Discharge Planning Routine Comment: Discharge provider: Elvis Knight DO Summary Hospital Course Discharge Diagnosis: (1) Symptomatic bradycardia due to accidental clonidine overdose. ? (2) Hypertension: ? ? ? (3) Chronic obstructive pulmonary disease: (4) Anxiety Hospital Course: This is a 62 year old female with PMH of HTN, COPD, anxiety who presented with bradycardia and dizziness secondary to accidental clonidine intoxication. She is on clonidine for anxiety, and reported taking multiple pills with an increase in environmental stressors recently. She had improvement with observation and holding of her home clonidine with improvement actually much more quickly than expected. Repeat EKG on discharged showed NSR with resolution of QT prolongation. For anxiety she was started on a small dose of lorazepam, she was counseled on addiction potential of this medication and advised not to take more than prescribed dosing. She will continue to follow up with outpatient primary care for ongoing anxiety management. Time Spent with Patient Time spent: Greater than 30 minutes Exam Vital Signs (past 8 hours): - 01/29/23 13:00 Pulse Rate 79 Respiratory Rate 16 Blood Pressure 105/50 L Pulse Oximetry 95 Oxygen Delivery Method Room Air Oxygen Flow Rate 0 Narrative Exam Narrative: General:? Patient is well developed and well nourished, in no distress at this time. HEENT:? Normocephalic, atraumatic, extraocular muscles intact, oral pharynx is clear and mucous membranes are moist. Chest:? Normal AP diameter and contour without kyphoscoliosis, no tachypnea, equal chest rise bilaterally. Lungs:? CTA b/l no wheezing rhonchi or rales. Cardio:?RRR no m/r/g. Extremities: No edema or joint effusions. No cyanosis or clubbing. Skin:? Pale,? Warm to touch,dry and intact without rashes, ulcerations or p etechiae.? Neuro:? Alert and orientated x3,? sensation to touch intact in all extremities, no gross deficits noted of cranial nerves. Psych:? Patient has a well-kept appearance, appropriate affect, mental status attitude thought context and judgment are appropriate for age. Objective Labs 01/29/23 08:18 01/28/23 13:45 Labs: Laboratory Results - last 24 hr 01/28/23 01/28/23 01/28/23 18:02 18:17 19:48 WBC RBC Hgb Hct MCV MCH MCHC RDW Plt Count Neut % (Auto) Lymph % (Auto) [place] % (Auto) Eos % (Auto) Baso % (Auto) Neut # (Auto) Lymph # (Auto) [place] # (Auto) Eos # (Auto) Baso # (Auto) Magnesium Total Creatine Kinase 40 Troponin I 0.032 U Opiates 300ng/mL cut Negative Ur Oxycodone Screen Negative Urine Methadone Screen Negative Ur Barbiturates Screen Negative U Tricyclic Antidepress Negative Ur Phencyclidine Scrn Negative Ur Amphetamines Screen Negative U Methamphetamines Scrn Negative Ur MDMA Scrn (Ecstasy) Negative U Benzodiazepines Scrn Negative Urine Cocaine Screen Negative U Marijuana (THC) Screen Negative Ethyl Alcohol < 10 01/29/23 01/29/23 01/29/23 08:18 08:18 08:18 WBC 6.5 RBC 4.41 Hgb 12.4 Hct 36.4 MCV 82.7 MCH 28.2 MCHC 34.1 RDW 14.7 Plt Count 173 Neut % (Auto) 61.7 Lymph % (Auto) 29.1 [place] % (Auto) 6.9 Eos % (Auto) 1.5 L Baso % (Auto) 0.8 Neut # (Auto) 4000 Lymph # (Auto) 1900 [place] # (Auto) 400 Eos # (Auto) 100 Baso # (Auto) 0 Magnesium 1.9 Total Creatine Kinase Troponin I 0.014 U Opiates 300ng/mL cut Ur Oxycodone Screen Urine Methadone Screen Ur Barbiturates Screen U Tricyclic Antidepress Ur Phencyclidine Scrn Ur Amphetamines Screen U Methamphetamines Scrn Ur MDMA Scrn (Ecstasy) U Benzodiazepines Scrn Urine Cocaine Screen U Marijuana (THC) Screen Ethyl Alcohol PFSH Social History household members: friend(s) Smoking Status: Current every day smoker Discharge Plan Discharge Plan Patient Disposition: Home Provider Discharge Comment: You were admitted to the hospital after ingesting too much clonidine. Anxiety medications were changed to avoid this in the future, but I am only able to prescribe 7 days of this medication and it can be harmful as well if you take too much so do not use it more than prescribed. Discharge orders & Medications Prescriptions: New lorazepam 0.5 mg tablet 0.5 mg PO BID PRN (Reason: anxiety) 7 Days Qty: 14 0RF Continued prazosin 2 mg PO 1XD sertraline [Zoloft] 100 mg PO 1XD amlodipine 10 mg PO 1XD mometasone-formoterol [Dulera] 1 inh inhalation DAILY albuterol sulfate [Ventolin HFA] 90 MCG/PUFF HFA aerosol inhaler 1 puff INH Q4HP PRNQty: 1 5RF ferrous sulfate [FeroSul] 325 mg (65 mg iron) tablet 325 mg PO Q OTHER DAY Patient Comments: take 1 tablet by mouth every other day Medication counseling provided by Pharmacist: Yes Follow up/Referrals: Gerald Kan MD [Primary Care Provider] - Diet/Activity/Treatments Diet: Diet as Tolerated and Regular Activity: As tolerated no restrictions. Visit Report/Discharge Packet Instructions: Lorazepam Stand Alone Forms: Patient Portal/API, Stroke Signs & Symptoms Discharge Data Primary Care Provider: Gerald Kan Discharges patient from system. Discharge Date/Time: 01/29/23 14:15 Quality VTE Deep Vein Thrombosis/Pulmonary Embolism Present on Admission: No
== END 2023-01-29 14:15 | disposition home or self-care (01) | DRG 812 ==
LOC: ED 18:21 → AC 21:28
PROVIDERS: Emergency Medicine; Admitting Provider Internal Medicine; Emergency Provider Emergency Medicine; PCP Family Medicine; Visit Provider Internal Medicine
DX: T46.5X1A Poisoning by other antihypertensive drugs, accidental (unintentional), initial encounter (principal); J44.9 Chronic obstructive pulmonary disease, unspecified; I10 Essential (primary) hypertension; R00.1 Bradycardia, unspecified; F41.9 Anxiety disorder, unspecified; F32.A Depression, unspecified; F17.210 Nicotine dependence, cigarettes, uncomplicated
CPT/HCPCS: 36415; 71045; 80053; 80305; 80320; 82550; 83690; 83735; 84484; 85025; 85610; 85730; 93005; 96365; 99284; 99285; G0378; J3475

== ENCOUNTER 2023-05-20 13:18 | Emergency (ER) | payer OTHER, MEDICAID, SELFPAY ==
[2023-05-20] VITALS (8 sets, daily range): BP systolic 132–195; BP diastolic 85–97; PULSE 81–92; RESP 18–28; TEMP 36.9; O2SAT 94–100; BMI 21.0
--- NOTE | 2023-05-20 13:20 | ED_ITS ---
HPI - General Adult General Chief complaint: Shortness of Breath/Dyspnea Stated complaint: Dyspnea Time Seen by Provider: 05/20/23 13:18 Source: patient and EMS Mode of arrival: EMS Limitations: no limitations History of Present Illness HPI narrative: Patient is a 62-year-old female. Has a history of COPD. Not on home oxygen. She does live in her car. She states that approximately 1 week ago she was getting out of her car in order to use the restroom. States she slipped and fell hitting her back on a running board of the car. She did not hit her head. She states she had left-sided rib pain that was sore for several days but then that symptoms seemed to improve. Earlier today the symptoms returned. This was causing to have some problems breathing. She is no skin rashes over the area. No fevers. No abdominal pain. She is not on blood thinners. No extremity injuries from the fall. EMS was called. She received a nebulizer treatment in route. She stated that she was not sure whether or not the nebulizer treatment helped her symptoms. She was here for for the side pain causing her shortness of breath. Related Data Home Medications Medication Instructions Recorded Confirmed amlodipine 10 mg PO 1XD 08/31/22 01/29/23 mometasone-formoterol [Dulera] 1 inh inhalation DAILY 08/31/22 01/29/23 prazosin 2 mg PO 1XD 08/31/22 01/29/23 sertraline [Zoloft] 100 mg PO 1XD 08/31/22 01/29/23 ferrous sulfate 325 mg (65 mg 325 mg PO Q OTHER DAY 01/28/23 01/29/23 iron) tablet (FeroSul) Previous Rx's Medication Instructions Recorded albuterol sulfate 90 mcg/actuation 1 puff INH Q4HP PRN #1 ea 01/31/16 aerosol inhaler (Ventolin HFA) albuterol sulfate 90 mcg/actuation 2 puff inhalation Q4-6H PRN 05/20/23 aerosol inhaler shortness of breath or wheezing #8.5 grams tramadol 50 mg tablet 50 mg PO Q8H PRN pain #10 tabs 05/20/23 Allergies Allergy/AdvReac Type Severity Reaction Status Date / Time Penicillins Allergy Unknown Verified 05/20/23 13:20 Sulfa (Sulfonamide Allergy Unknown Verified 05/20/23 13:20 Antibiotics) ibuprofen AdvReac Unknown Verified 05/20/23 13:20 Review of Systems Constitutional Constitutional: Denies system reviewed and no additional complaints, except as documented Cardiovascular Cardiovascular: Reports system reviewed and no additional complaints, except as documented Respiratory Respiratory: Reports system reviewed and no additional complaints, except as documented Gastrointestinal Gastrointestinal: Reports system reviewed and no additional complaints, except as documented Integumentary/Breasts Skin/Breast: Reports system reviewed and no additional complaints, except as documented Neurologic Neurologic: Reports system reviewed and no additional complaints, except as documented Hematologic/Lymphatic On Anticoagulants: No Patient History Social History household members: friend(s) Smoking Status: Current every day smoker Smoking Status: Current every day smoker tobacco type: cigarettes alcohol intake frequency: 0-2 drinks per day Substance Use Type: does not use, former substance user, IV drugs and methamphetamine Exam Initial Vital Signs Initial Vital Signs: Vital Signs Blood Pressure 195/97 H 05/20/23 13:19 Const Other: Chronically ill-appearing HENMT Head: normal to inspection and normocephalic Chest Other: Tenderness to discomfort anterior and lateral left ribs. No crepitus felt. Resp Effort & Inspection: normal respiratory effort Auscultation: clear to auscultation bilaterally Cardio Rate: regular rate Rhythm: regular rhythm GI Inspection: normal to inspection and non-distended Palpation: soft and No tender Back/Spine/Pelvis Back: No CVA tenderness Skin General: no rashes or lesions noted Neuro General: patient alert and patient awake Extrem General: No edema Course Orders Ordered: ED Orders 05/20/23 13:23 XR chest 1V Stat EKG-12 Lead Stat RT Consult Eval and Treat Now 05/20/23 13:39 Complete Blood Count AUTO DIFF Stat Comprehensive Metabolic Panel Stat Ethanol (ETOH) Stat Lipase Stat Magnesium Stat NT-proBNP (BNP-Adult 18+) Stat PTT Partial Thromboplastin Rodger Stat Procalcitonin Stat Prothrombin Time INR Stat Respiratory Panel (Film Array) Stat Troponin & CK Cardiac Panel Stat 05/20/23 13:43 Consult to [facility] [place] - Commodity Merchant Stat Discontinued Medications Albuterol/Ipratropium (Albuterol/Ipratropium 3 Ml Ampul) 3 ml INH NOW ONE Stop: 05/20/23 13:23 Last Admin: 05/20/23 13:53 Dose: 3 ml Documented By: TOMÁS Methylprednisolone (Methylprednisolone 125 Mg/2 Ml Vial) 125 mg IV NOW ONE Stop: 05/20/23 13:23 Last Admin: 05/20/23 13:42 Dose: 125 mg Documented By: LUCAS Vital Signs Vital signs: Vital Signs - 8 hr 05/20/23 13:19 05/20/23 13:20 05/20/23 13:20 Temperature 98.4 F Pulse Rate 88 92 H Respiratory Rate 26 H 26 H Blood Pressure 195/97 H 195/97 H Pulse Oximetry 98 100 Oxygen Delivery Method Room Air Oxygen Flow Rate Fraction of Inspired Oxygen 05/20/23 13:30 05/20/23 13:34 05/20/23 13:34 Temperature Pulse Rate 91 H 88 Respiratory Rate 26 H 28 H Blood Pressure 132/88 Pulse Oximetry 95 96 Oxygen Delivery Method Oxygen Flow Rate Fraction of Inspired Oxygen 05/20/23 13:53 05/20/23 14:00 05/20/23 14:00 Temperature Pulse Rate 82 81 Respiratory Rate 18 24 Blood Pressure 168/93 H Pulse Oximetry 94 96 Oxygen Delivery Method Room Air Oxygen Flow Rate 0 Fraction of Inspired Oxygen 05/20/23 14:30 05/20/23 14:30 05/20/23 15:00 Temperature Pulse Rate 85 Respiratory Rate 24 Blood Pressure 181/86 H 159/85 H Pulse Oximetry 94 Oxygen Delivery Method Oxygen Flow Rate Fraction of Inspired Oxygen 05/20/23 15:00 Temperature Pulse Rate 86 Respiratory Rate Blood Pressure Pulse Oximetry 98 Oxygen Delivery Method Oxygen Flow Rate Fraction of Inspired Oxygen Medical Decision Making Medical Records Medical records reviewed: Yes I reviewed the patient's medical records. Lab Data Lab results reviewed: Yes I reviewed the patient's lab results. 05/20/23 13:39 05/20/23 13:39 Labs: Lab Results 05/20/23 Range/Units 13:39 WBC 9.9 (4.5-11.0) X10^3/uL RBC 5.34 H (4.0-5.2) X10^6/uL Hgb 15.4 (12.0-16.0) g/dL Hct 44.2 (36-46) % MCV 82.8 (80-100) fL MCH 28.9 (26-34) PG MCHC 34.9 (30-36) % RDW 12.9 (11.6-14.8) % Plt Count 200 (150-400) X10^3/uL Neut % (Auto) 70.1 (50-75) % Lymph % (Auto) 21.3 L (25-40) % [place] % (Auto) 6.2 (3-14) % Eos % (Auto) 1.3 L (2-4) % Baso % (Auto) 1.1 (0-2) % Neut # (Auto) 7000 (8787-0546) /uL Lymph # (Auto) 2100 (5322-6742) /uL [place] # (Auto) 600 (0-900) /uL Eos # (Auto) 100 (0-450) /uL Baso # (Auto) 100 (0-100) /uL PT 11.2 (9.4-12.5) SECONDS INR 1.0 (0.9-1.3) APTT 29 (25.1-36.5) SECONDS Sodium 138 (137-145) mmol/L Potassium 3.2 L (3.4-5.1) mmol/L Chloride 105 (98-107) mmol/L Carbon Dioxide 25 (22-32) mmol/L BUN 15 (7-17) mg/dL Creatinine 0.56 (0.52-1.04) mg/dL Estimated GFR > 60 (>60) mL/min BUN/Creatinine Ratio 26.8 H (6-22) Glucose 121 H (80-110) mg/dL Calcium 9.4 (8.4-10.2) mg/dL Magnesium 2.0 (1.6-2.3) mg/dL Total Bilirubin 0.7 (0.2-1.3) mg/dL AST 31 (14-36) IU/L ALT 23 (<35) IU/L Alkaline Phosphatase 93 (38-126) U/L Total Creatine Kinase 87 (30-135) U/L Troponin I < 0.012 (0.01-0.034) ng/mL NT-Pro-B Natriuret Pep 229 H (<125) pg/mL Total Protein 7.5 (6.3-8.2) g/dL Albumin 4.1 (3.5-5.0) g/dL Globulin 3.4 (1.7-4.1) g/dL Albumin/Globulin Ratio 1.2 (1.0-2.8) Lipase 118 (23-300) U/L Procalcitonin 0.06 (<0.5) ng/mL Ethyl Alcohol < 10 ( - 10) mg/dL Chlamy pneumoniae PCR Not detected (Not Detect) Adenovirus (PCR) Not detected (Not Detect) B.parapertussis DNA PCR Not detected (Not Detecte) Coronavirus OC43 (PCR) Not detected (Not Detect) Coronavirus HKU1 (PCR) Not detected (Not Detect) Coronavirus 229E (PCR) Not detected (Not Detect) SARS-CoV-2 (PCR) Not detected (Not Detecte) Coronavirus NL63 (PCR) Not detected (Not Detect) Human Metapneumovir PCR Not detected (Not Detect) Influenza Type A (PCR) Not detected (Not Detect) Influenza Type B (PCR) Not detected (Not Detect) M. pneumoniae (PCR) Not detected (Not Detect) Parainfluenza 1 (PCR) Not detected (Not Detect) Parainfluenza 2 (PCR) Not detected (Not Detect) Parainfluenza 3 (PCR) Not detected (Not Detect) Parainfluenza 4 (PCR) Not detected (Not Detect) RSV (PCR) Not detected (Not Detect) Entero/Rhino (PCR) Not detected (Not Detect) Imaging Data Chest x-ray: Radiologist's Impression: PROCEDURE: XR CHEST 1V INDICATIONS: Shortness of breath TECHNIQUE: One view of the chest was acquired. COMPARISON: [facility], XR CHEST 1V, 01/28/2023, 13:55. FINDINGS: Surgical changes and devices: None. Lungs and pleura: Lungs are clear. No pleural effusions or pneumothorax. Mediastinum: Mediastinal contours appear normal. Heart size is normal. Bones and chest wall: No suspicious bony lesions. Overlying soft tissues appear unremarkable. IMPRESSION: No acute cardiopulmonary abnormality is seen. ECG Data Attestation: I personally reviewed and interpreted this ECG as follows: Interpretation: Sinus rhythm Ventricular rate 81 Normal axis Normal QRS Normal QTC No ST T wave changes MDM Narrative Medical decision making narrative: Chest x-ray shows no signs of pneumonia. After nebulizer treatments she was not in any respiratory distress. Her lungs are clear. Not hypoxic. Not tachypneic. She is no skin changes over the area concerning for shingles. It is tender to palpation. No indication for antibiotics. It is somewhat strange that she has new symptoms today when the fall was approximately 1 week ago. She thinks that maybe she either coughed or sneezed and that reaggravated the discomfort earlier today. We talked about her symptoms. Will send her home with symptom treatment. We discussed the importance of occasionally taking deep breaths. She was given return precautions and follow-up instructions. She expressed understanding and agreement. Discharge Plan Departure Patient Disposition: Home Clinical Impression: COPD (chronic obstructive pulmonary disease), Rib pain on left side Instructions: Chronic Obstructive Pulmonary Disease Activity Restrictions/Additional Instructions: Recommend you continue to take all of your medications as directed. Also recommend you contact your primary doctor for a follow-up. Return to the emergency department for new symptoms. Prescriptions: New tramadol 50 mg tablet 50 mg PO Q8H PRN (Reason: pain) Qty: 10 0RF albuterol sulfate 90 mcg/actuation HFA aerosol inhaler 2 puff inhalation Q4-6H PRN (Reason: shortness of breath or wheezing) Qty: 8.5 2RF No Action prazosin 2 mg PO 1XD sertraline [Zoloft] 100 mg PO 1XD amlodipine 10 mg PO 1XD mometasone-formoterol [Dulera] 1 inh inhalation DAILY albuterol sulfate [Ventolin HFA] 90 MCG/PUFF HFA aerosol inhaler 1 puff INH Q4HP PRNQty: 1 5RF ferrous sulfate [FeroSul] 325 mg (65 mg iron) tablet 325 mg PO Q OTHER DAY Patient Comments: take 1 tablet by mouth every other day Referrals: Gerald Kan MD [Primary Care Provider] - Stand Alone Forms: Patient Portal/API
--- NOTE | 2023-05-20 13:23 | DI.RAD.S_ITS ---
PROCEDURE: XR CHEST 1V INDICATIONS: Shortness of breath TECHNIQUE: One view of the chest was acquired. COMPARISON: [facility], [place], XR CHEST 1V, 01/28/2023, 13:55. FINDINGS: Surgical changes and devices: None. Lungs and pleura: Lungs are clear. No pleural effusions or pneumothorax. Mediastinum: Mediastinal contours appear normal. Heart size is normal. Bones and chest wall: No suspicious bony lesions. Overlying soft tissues appear unremarkable. IMPRESSION: No acute cardiopulmonary abnormality is seen. Dictated by: Payam Max M.D. on 05/20/2023 at 13:50 Approved by: Payam Max M.D. on 05/20/2023 at 13:50
[2023-05-20] MEDS: methylPREDNISolone 125 MG/2 ML VIAL IV (13:42)
[2023-05-20] MEDS: ALBUTEROL/IPRATROPIUM 3 ML AMPUL INH (13:53)
[2023-05-20 13:56] LABS: Add Manual Diff / Slide Review NO; Basophils Absolute Auto 100 /uL (0-100); Basophils Percent Auto 1.1 % (0-2); Eosinophils Absolute Auto 100 /uL (0-450); Eosinophils Percent Auto 1.3 % (2-4); Hematocrit 44.2 % (36-46); Hemoglobin 15.4 g/dL (12.0-16.0); Lymphocytes Absolute Auto 2100 /uL (1100-4500); Lymphocytes Percent Auto 21.3 % (25-40); Mean Corpuscular HGB Conc 34.9 % (30-36); Mean Corpuscular Hemoglobin 28.9 PG (26-34); Mean Corpuscular Volume 82.8 fL (80-100); Monocytes Absolute Auto 600 /uL (0-900); Monocytes Percent Auto 6.2 % (3-14); Neutrophils Absolute Auto 7000 /uL (1500-7000); Neutrophils Percent Auto 70.1 % (50-75); Platelet Count 200 X10^3/uL (150-400); Red Blood Cell Count 5.34 X10^6/uL (4.0-5.2); Red Cell Distribution Width 12.9 % (11.6-14.8); White Blood Cell Count 9.9 X10^3/uL (4.5-11.0)
[2023-05-20 13:57] LABS: Prothrombin Time 11.2 SECONDS (9.4-12.5)
[2023-05-20 13:59] LABS: PTT Partial Thromboplastin Tim 29 SECONDS (25.1-36.5)
[2023-05-20 14:01] LABS: Alanine Aminotransferase 23 IU/L (<35); Albumin 4.1 g/dL (3.5-5.0); Albumin Globulin Ratio 1.2 (1.0-2.8); Alkaline Phosphatase 93 U/L (38-126); Aspartate Aminotransferase 31 IU/L (14-36); BUN Creatinine Ratio 26.8 (6-22); Bilirubin Total 0.7 mg/dL (0.2-1.3); Blood Urea Nitrogen 15 mg/dL (7-17); Calcium 9.4 mg/dL (8.4-10.2); Carbon Dioxide 25 mmol/L (22-32); Chloride 105 mmol/L (98-107); Creatine Kinase 87 U/L (30-135); Estimated Glomerular Filt Rate > 60 mL/min (>60); Ethanol (ETOH) < 10 mg/dL; Globulin 3.4 g/dL (1.7-4.1); Glucose 121 mg/dL (80-110); HEMOLYSIS < 15 (0-50); Lipase 118 U/L (23-300); Potassium 3.2 mmol/L (3.4-5.1); Sodium 138 mmol/L (137-145); Total Protein 7.5 g/dL (6.3-8.2)
[2023-05-20 14:12] LABS: NT-proBNP (BNP-Adult 18+) 229 pg/mL (<125); Troponin I < 0.012 ng/mL (0.01-0.034)
[2023-05-20 14:17] LABS: Procalcitonin 0.06 ng/mL (<0.5)
[2023-05-20 14:47] LABS: Adenovirus Not Detected (Not Detect); B. parapertussis Not Detected (Not Detecte); Bordetella pertussis Not Detected (Not Detect); Chlamydophila pneumoniae Not Detected (Not Detect); Coronavirus 229E Not Detected (Not Detect); Coronavirus HKU1 Not Detected (Not Detect); Coronavirus NL 63 Not Detected (Not Detect); Coronavirus OC43 Not Detected (Not Detect); Human Metapneumovirus Not Detected (Not Detect); Human Rhinovirus/Enterovirus Not Detected (Not Detect); Influenza A Not Detected (Not Detect); Influenza B Not Detected (Not Detect); Mycoplasma pneumoniae Not Detected (Not Detect); Parainfluenza Virus 1 Not Detected (Not Detect); Parainfluenza Virus 2 Not Detected (Not Detect); Parainfluenza Virus 3 Not Detected (Not Detect); Parainfluenza Virus 4 Not Detected (Not Detect); Respiratory Syncytial Virus Not Detected (Not Detect); SARS- CoV-2 Not Detected (Not Detecte)
--- NOTE | 2023-05-20 14:47 | CM.SWNOTE ---
ED ORTHOPEDIC SPECIALIST Note ORTHOPEDIC SPECIALIST receives consult from RN due to concern for patient's living situation. Patient is 62 y/o female who presents to ED via EMS due to concern for SOB/Dyspnea. ORTHOPEDIC SPECIALIST enters room to meet with patient. Patient presents as A/Ox4. Patient states she called her PCP due to her symptoms and the PCP office called 911. Patient states that she plans to f/u with PCP and to stop smoking. Patient endorses she feels safe at home. Patient endorses that she has a restraining order against someone that comes to her property, ORTHOPEDIC SPECIALIST encourages patient to call 911 he is attempts to go near patient. Patient denies any needs or resources from ORTHOPEDIC SPECIALIST, patient endorses plan to take bus home upon d/c. Patient later endorses concerns regarding paying for previous ED visit and admission to the hospital on 01/28/23. ORTHOPEDIC SPECIALIST provides patient with brianna application for her to fill out. Patient endorses she has insurance. Per EMR, patient has Medicaid [employer]. Plan: patient to d/c to home via bus upon medical clearance. JAVIER RinaldiSW
== END 2023-05-20 15:06 | disposition home or self-care (01) ==
PROVIDERS: Emergency Provider Emergency Medicine; PCP Family Medicine
DX: J44.9 Chronic obstructive pulmonary disease, unspecified (principal); R07.81 Pleurodynia; Z20.822 Contact with and (suspected) exposure to COVID-19
CPT/HCPCS: 36415; 71045; 80053; 80320; 82550; 83690; 83735; 83880; 84145; 84484; 85025; 85610; 85730; 87633; 93005; 93010; 94640; 96374; 99284; J2930

== ENCOUNTER 2024-02-13 14:32 | Emergency (ER) | payer OTHER, MEDICAID, SELFPAY ==
[2024-02-13] VITALS (16 sets, daily range): BP systolic 160–233; BP diastolic 90–120; PULSE 79–96; RESP 13–30; TEMP 36.4; O2SAT 96–100; BMI 18.6
--- NOTE | 2024-02-13 14:36 | DI.CT.S_ITS ---
PROCEDURE: CT ABDOMEN PELVIS W CON INDICATIONS: MIDEPIGASTRIC ABD PAIN, N/V TECHNIQUE: After the administration of intravenous contrast, axial sections acquired from the lung bases to the pubic symphysis. Coronal and sagittal reformats were performed. For radiation dose reduction, the following was used: automated exposure control, adjustment of mA and/or kV according to patient size. COMPARISON: None. FINDINGS: Image quality: Diagnostic. Lower Chest: No significant findings. ABDOMEN: Liver: No solid mass. Gallbladder: No radiopaque gallstones or wall thickening. Biliary ducts: No biliary dilation. Pancreas: No ductal dilation. Spleen: Size is within normal limits. Adrenal Glands: No adrenal nodules. Kidneys and Ureters: No hydronephrosis. No solid mass. No complex renal cystic lesion which requires follow up. Stomach and Bowel: Stomach is mildly distended with fluid. No significant wall thickening. Multiple loops of fluid-filled small bowel with mild wall hyperemia and minimal thickening involving the lower abdomen. Findings are more pronounced in the distal small bowel with associated fecalization of the terminal ileum. No pneumatosis. No portal venous gas. No significant mesenteric edema. No definite transition point although small bowel appears to rapidly decrease in caliber near the cecum. Moderate fecal material seen throughout the colon. No abnormal colonic wall thickening. Peritoneum: Small volume scattered ascites more pronounced in the left pericolic gutter and pelvis. No peritoneal enhancement. No free air. Ventral Wall: No significant ventral hernia. Abdominal Nodes: No retroperitoneal or mesenteric adenopathy by size criteria. Vessels: Aorta and inferior vena cava are normal in size. PELVIS: Pelvic Organs: Heterogeneous, enlarged uterus with coarse calcifications likely representing fibroid uterus with degenerating fibroids. This was described on pelvic ultrasound report dated June 27, 2014 (images not available for review). Bladder: No bladder wall thickening, accounting for underdistention. Pelvic Nodes: No enlarged lymph nodes. Miscellaneous: No inguinal hernias are seen. Bones: No aggressive osseous abnormality. Visualized osseous structures appear intact without acute fracture or focal destructive lesion. No acute compression fractures of the imaged spine. IMPRESSION: Multiple loops of mildly dilated small bowel with mild wall thickening and wall hyperemia most pronounced in the lower abdomen and distal ileum. There is associated fecalization consistent with delayed transit. Findings are nonspecific but may represent gastroenteritis either infectious or inflammatory in etiology. Early ileus versus partial small bowel obstruction not excluded. Recommend continued clinical surveillance and follow-up imaging as needed. There is associated small volume ascites likely reactive in etiology. Heterogeneous, enlarged uterus likely representing multi fibroid uterus with degenerating fibroid. Dictated by: Jakub Talamantes M.D. on 02/13/2024 at 14:46 Approved by: Jakub Talamantes M.D. on 02/13/2024 at 15:05
--- NOTE | 2024-02-13 14:40 | ED.ABDPAIN ---
HPI - Abdominal Pain General Chief Complaint: Abdominal Pain Stated Complaint: Abd px Time Seen by Provider: 02/13/24 14:32 History of Present Illness HPI narrative: 63-year-old female with history of hypertension, COPD presents by EMS for midepigastric abdominal pain with nausea and vomiting. Symptoms began yesterday and has been constant since onset. Last bowel movement yesterday, runny per patient report. Also reports amphetamine use yesterday. Related Data Home Medications Medication Instructions Recorded Confirmed amlodipine 10 mg PO 1XD 08/31/22 01/29/23 mometasone-formoterol [Dulera] 1 inh inhalation DAILY 08/31/22 01/29/23 prazosin 2 mg PO 1XD 08/31/22 01/29/23 sertraline [Zoloft] 100 mg PO 1XD 08/31/22 01/29/23 ferrous sulfate 325 mg (65 mg 325 mg PO Q OTHER DAY 01/28/23 01/29/23 iron) tablet (FeroSul) Previous Rx's Medication Instructions Recorded albuterol sulfate 90 mcg/actuation 1 puff INH Q4HP PRN #1 ea 01/31/16 aerosol inhaler (Ventolin HFA) albuterol sulfate 90 mcg/actuation 2 puff inhalation Q4-6H PRN 05/20/23 aerosol inhaler shortness of breath or wheezing #8.5 grams tramadol 50 mg tablet 50 mg PO Q8H PRN pain #10 tabs 05/20/23 ondansetron 4 mg disintegrating 4 mg PO Q8H PRN nausea and 02/13/24 tablet vomiting #30 tabs tramadol 50 mg tablet 50 mg PO Q8H PRN pain #9 tabs 02/13/24 Allergies Allergy/AdvReac Type Severity Reaction Status Date / Time Penicillins Allergy Unknown Verified 02/13/24 14:48 Sulfa (Sulfonamide Allergy Unknown Verified 02/13/24 14:48 Antibiotics) ibuprofen AdvReac Unknown Verified 02/13/24 14:48 Patient History Social History household members: friend(s) Smoking Status: Current every day smoker Smoking Status: Current every day smoker tobacco type: cigarettes alcohol intake frequency: 0-2 drinks per day Substance Use Type: does not use, former substance user, IV drugs and methamphetamine Exam Initial Vital Signs Initial Vital Signs: Vital Signs Pulse Rate 96 H 02/13/24 14:36 Blood Pressure 171/96 H 02/13/24 14:36 Pulse Oximetry 100 02/13/24 14:36 Const: Awake, alert, in pain, appears chronically unwell, older than stated age Cardiac: regular rate, regular rhythm RESP: unlabored, clear bilaterally, no wheezing GI: Soft, midepigastric tenderness to palpation, no rebound or guarding, no distention Skin: Warm, Dry, intact, no rashes Neuro: AO x3, CN II-XII grossly intact, moves all extremities Course Orders Ordered: Discontinued Medications Sodium Chloride (Normal Saline 0.9%) 1,000 mls @ 1,000 mls/hr IV BOLUS ONE Stop: 02/13/24 15:35 Last Infusion: 02/13/24 15:48 Dose: Infused Documented By: Admin: 02/13/24 14:46 Dose: 1,000 mls/hr Documented By: GABBY Morphine Sulfate (Morphine 4 Mg/Ml Inj) 4 mg IV NOW ONE Stop: 02/13/24 14:37 Last Admin: 02/13/24 14:46 Dose: 4 mg Documented By: GABBY Ondansetron HCl (Ondansetron 4 Mg/2 Ml Inj) 4 mg IV NOW ONE Stop: 02/13/24 14:37 Last Admin: 02/13/24 14:46 Dose: 4 mg Documented By: GABBY Vital Signs Vital signs: Vital Signs - 8 hr 02/13/24 14:36 02/13/24 14:36 02/13/24 14:40 Temperature 97.5 F L Pulse Rate 96 H 83 Respiratory Rate 24 Blood Pressure 171/96 H 171/96 H Pulse Oximetry 100 100 Oxygen Delivery Method Room Air 02/13/24 15:00 02/13/24 15:00 02/13/24 15:01 Temperature Pulse Rate 79 79 Respiratory Rate 13 13 Blood Pressure 222/107 H Pulse Oximetry 96 96 Oxygen Delivery Method 02/13/24 15:01 02/13/24 15:16 02/13/24 15:16 Temperature Pulse Rate 79 Respiratory Rate 14 Blood Pressure 211/102 H 225/110 H Pulse Oximetry 99 Oxygen Delivery Method 02/13/24 15:19 02/13/24 15:19 02/13/24 15:25 Temperature Pulse Rate 82 81 Respiratory Rate 18 14 Blood Pressure 208/110 H Pulse Oximetry 97 98 Oxygen Delivery Method 02/13/24 15:25 02/13/24 15:30 02/13/24 15:30 Temperature Pulse Rate 84 Respiratory Rate 30 H Blood Pressure 212/113 H 212/111 H Pulse Oximetry 100 Oxygen Delivery Method 02/13/24 15:35 02/13/24 15:35 02/13/24 16:00 Temperature Pulse Rate 81 Respiratory Rate 24 Blood Pressure 233/120 H 197/107 H Pulse Oximetry 98 Oxygen Delivery Method 02/13/24 16:00 02/13/24 16:30 02/13/24 16:30 Temperature Pulse Rate 80 83 Respiratory Rate 15 16 Blood Pressure 185/104 H Pulse Oximetry 97 98 Oxygen Delivery Method 02/13/24 17:00 02/13/24 17:00 02/13/24 17:21 Temperature Pulse Rate 82 90 Respiratory Rate 17 20 Blood Pressure 183/102 H Pulse Oximetry 99 99 Oxygen Delivery Method 02/13/24 17:26 02/13/24 17:31 Temperature Pulse Rate Respiratory Rate Blood Pressure 215/98 H 161/105 H Pulse Oximetry Oxygen Delivery Method MDM - Abdominal Pain Differential Diagnosis Differential diagnosis: Likely abdominal pain, gastroenteritis and pancreatitis Lab Data 02/13/24 14:35 02/13/24 14:35 Labs: Lab Results 02/13/24 02/13/24 Range/Units 14:35 16:40 WBC 12.2 H (4.5-11.0) X10^3/uL RBC 5.96 H (4.0-5.2) X10^6/uL Hgb 16.8 H (12.0-16.0) g/dL Hct 50.1 H (36-46) % MCV 84.1 (80-100) fL MCH 28.1 (26-34) PG MCHC 33.5 (30-36) % RDW 13.6 (11.6-14.8) % Plt Count 308 (150-400) X10^3/uL Neut % (Auto) 72.8 (50-75) % Lymph % (Auto) 19.9 L (25-40) % [place] % (Auto) 5.6 (3-14) % Eos % (Auto) 1.0 L (2-4) % Baso % (Auto) 0.7 (0-2) % Neut # (Auto) 8900 H (2062-3652) /uL Lymph # (Auto) 2400 (8248-4813) /uL [place] # (Auto) 700 (0-900) /uL Eos # (Auto) 100 (0-450) /uL Baso # (Auto) 100 (0-100) /uL PT 10.3 (9.4-12.5) SECONDS INR 0.9 (0.9-1.3) Sodium 134 L (137-145) mmol/L Potassium 3.6 (3.4-5.1) mmol/L Chloride 102 (98-107) mmol/L Carbon Dioxide 23 (22-32) mmol/L BUN 11 (7-17) mg/dL Creatinine 0.56 (0.52-1.04) mg/dL Estimated GFR > 60 (>60) mL/min BUN/Creatinine Ratio 19.6 (6-22) Glucose 111 H (80-110) mg/dL Lactate 2.2 H 0.8 (0.7-2.1) mmol/L Calcium 9.2 (8.4-10.2) mg/dL Magnesium 1.8 (1.6-2.3) mg/dL Total Bilirubin 0.6 (0.2-1.3) mg/dL AST 29 (14-36) IU/L ALT 25 (<35) IU/L Alkaline Phosphatase 133 H (38-126) U/L Total Protein 7.7 (6.3-8.2) g/dL Albumin 4.1 (3.5-5.0) g/dL Globulin 3.6 (1.7-4.1) g/dL Albumin/Globulin Ratio 1.1 (1.0-2.8) Lipase 81 (23-300) U/L Imaging Data CT scan - abdomen/pelvis: Radiologist's Impression: PROCEDURE: CT ABDOMEN PELVIS W CON INDICATIONS: MIDEPIGASTRIC ABD PAIN, N/V TECHNIQUE: After the administration of intravenous contrast, axial sections acquired from the lung bases to the pubic symphysis. Coronal and sagittal reformats were performed. For radiation dose reduction, the following was used: automated exposure control, adjustment of mA and/or kV according to patient size. COMPARISON: None. FINDINGS: Image quality: Diagnostic. Lower Chest: No significant findings. ABDOMEN: Liver: No solid mass. Gallbladder: No radiopaque gallstones or wall thickening. Biliary ducts: No biliary dilation. Pancreas: No ductal dilation. Spleen: Size is within normal limits. Adrenal Glands: No adrenal nodules. Kidneys and Ureters: No hydronephrosis. No solid mass. No complex renal cystic lesion which requires follow up. Stomach and Bowel: Stomach is mildly distended with fluid. No significant wall thickening. Multiple loops of fluid-filled small bowel with mild wall hyperemia and minimal thickening involving the lower abdomen. Findings are more pronounced in the distal small bowel with associated fecalization of the terminal ileum. No pneumatosis. No portal venous gas. No significant mesenteric edema. No definite transition point although small bowel appears to rapidly decrease in caliber near the cecum. Moderate fecal material seen throughout the colon. No abnormal colonic wall thickening. Peritoneum: Small volume scattered ascites more pronounced in the left pericolic gutter and pelvis. No peritoneal enhancement. No free air. Ventral Wall: No significant ventral hernia. Abdominal Nodes: No retroperitoneal or mesenteric adenopathy by size criteria. Vessels: Aorta and inferior vena cava are normal in size. PELVIS: Pelvic Organs: Heterogeneous, enlarged uterus with coarse calcifications likely representing fibroid uterus with degenerating fibroids. This was described on pelvic ultrasound report dated June 27, 2014 (images not available for review). Bladder: No bladder wall thickening, accounting for underdistention. Pelvic Nodes: No enlarged lymph nodes. Miscellaneous: No inguinal hernias are seen. Bones: No aggressive osseous abnormality. Visualized osseous structures appear intact without acute fracture or focal destructive lesion. No acute compression fractures of the imaged spine. IMPRESSION: Multiple loops of mildly dilated small bowel with mild wall thickening and wall hyperemia most pronounced in the lower abdomen and distal ileum. There is associated fecalization consistent with delayed transit. Findings are nonspecific but may represent gastroenteritis either infectious or inflammatory in etiology. Early ileus versus partial small bowel obstruction not excluded. Recommend continued clinical surveillance and follow-up imaging as needed. There is associated small volume ascites likely reactive in etiology. Heterogeneous, enlarged uterus likely representing multi fibroid uterus with degenerating fibroid. Dictated by: Jakub Talamantes M.D. on 02/13/2024 at 14:46 Approved by: Jakub Talamantes M.D. on 02/13/2024 at 15:05 [facility] Narrative Medical decision making narrative: Midepigastric abdominal pain with nausea. Abdomen soft, generally tender to deep palpation particularly in the upper quadrants, no rebound or guarding. Laboratory work, pain medications, fluids, nausea medications ordered. Laboratory work reviewed, WBC count 12.12, hemoglobin 16.8, platelets 308, sodium 134, potassium 3.6, creatinine 0.56. Lactic acid 2.2, repeat 0.8, liver enzymes normal. CT scan shows findings consistent with gastroenteritis. Low suspicion for bowel obstruction at this time. Patient has had multiple bowel movements in the emergency department. She has been able to tolerate p.o. crackers and fluids. No emesis witnessed while patient in the emergency department. Patient counseled on lab and imaging findings. Recommended following a light diet for the next several days. Pain and Nausea medication sent to pharmacy of choice. ED return precautions discussed at bedside. Discharge Plan Departure Patient Disposition: Home Clinical Impression: Abdominal pain, Gastroenteritis Instructions: DI for Viral Gastroenteritis -- Adult Activity Restrictions/Additional Instructions: Your labs and CT imaging are consistent with gastroenteritis, or a general stomach bug. Take the nausea medication as prescribed. Prescriptions: New ondansetron 4 mg tablet,disintegrating 4 mg PO Q8H PRN (Reason: nausea and vomiting) Qty: 30 0RF tramadol 50 mg tablet 50 mg PO Q8H PRN (Reason: pain) Qty: 9 0RF No Action prazosin 2 mg PO 1XD sertraline [Zoloft] 100 mg PO 1XD amlodipine 10 mg PO 1XD mometasone-formoterol [Dulera] 1 inh inhalation DAILY albuterol sulfate [Ventolin HFA] 90 MCG/PUFF HFA aerosol inhaler 1 puff INH Q4HP PRNQty: 1 5RF ferrous sulfate [FeroSul] 325 mg (65 mg iron) tablet 325 mg PO Q OTHER DAY Patient Comments: take 1 tablet by mouth every other day tramadol 50 mg tablet 50 mg PO Q8H PRN (Reason: pain) Qty: 10 0RF albuterol sulfate 90 mcg/actuation HFA aerosol inhaler 2 puff inhalation Q4-6H PRN (Reason: shortness of breath or wheezing) Qty: 8.5 2RF Referrals: Gerald Kan MD [Primary Care Provider] - Stand Alone Forms: Patient Portal/API
--- NOTE | 2024-02-13 14:44 | EKG_ITS ---
[address] [address] Test Date: 2024-02-13 Pat Name: Izzy Cain Department: 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
[2024-02-13 14:46] LABS: Add Manual Diff / Slide Review NO; Basophils Absolute Auto 100 /uL (0-100); Basophils Percent Auto 0.7 % (0-2); Eosinophils Absolute Auto 100 /uL (0-450); Hematocrit 50.1 % (36-46); Hemoglobin 16.8 g/dL (12.0-16.0); Lymphocytes Absolute Auto 2400 /uL (1100-4500); Lymphocytes Percent Auto 19.9 % (25-40); Mean Corpuscular HGB Conc 33.5 % (30-36); Mean Corpuscular Hemoglobin 28.1 PG (26-34); Mean Corpuscular Volume 84.1 fL (80-100); Monocytes Absolute Auto 700 /uL (0-900); Monocytes Percent Auto 5.6 % (3-14); Neutrophils Absolute Auto 8900 /uL (1500-7000); Neutrophils Percent Auto 72.8 % (50-75); Platelet Count 308 X10^3/uL (150-400); Red Blood Cell Count 5.96 X10^6/uL (4.0-5.2); Red Cell Distribution Width 13.6 % (11.6-14.8); White Blood Cell Count 12.2 X10^3/uL (4.5-11.0)
[2024-02-13] MEDS: SODIUM CHLORIDE 0.9% 1,000 ML 1000 ML IV (14:46)
[2024-02-13] MEDS: MORPHINE 4 MG/ML INJ IV (14:46)
[2024-02-13] MEDS: ONDANSETRON 4 MG/2 ML INJ IV (14:46)
[2024-02-13 14:50] LABS: INR 0.9 (0.9-1.3); Prothrombin Time 10.3 SECONDS (9.4-12.5)
[2024-02-13 14:54] LABS: Lactate (Lactic Acid) 2.2 mmol/L (0.7-2.1)
[2024-02-13 14:55] LABS: Alanine Aminotransferase 25 IU/L (<35); Albumin 4.1 g/dL (3.5-5.0); Albumin Globulin Ratio 1.1 (1.0-2.8); Alkaline Phosphatase 133 U/L (38-126); Aspartate Aminotransferase 29 IU/L (14-36); BUN Creatinine Ratio 19.6 (6-22); Bilirubin Total 0.6 mg/dL (0.2-1.3); Blood Urea Nitrogen 11 mg/dL (7-17); Calcium 9.2 mg/dL (8.4-10.2); Carbon Dioxide 23 mmol/L (22-32); Chloride 102 mmol/L (98-107); Estimated Glomerular Filt Rate > 60 mL/min (>60); Globulin 3.6 g/dL (1.7-4.1); Glucose 111 mg/dL (80-110); HEMOLYSIS < 15 (0-50); Lipase 81 U/L (23-300); Magnesium 1.8 mg/dL (1.6-2.3); Potassium 3.6 mmol/L (3.4-5.1); Sodium 134 mmol/L (137-145); Total Protein 7.7 g/dL (6.3-8.2)
[2024-02-13 16:14] LABS: Reflexed Lactate in 2 Hours Y
[2024-02-13 16:58] LABS: Lactate 2HR (Lactic Acid Rflx) 0.8 mmol/L (0.7-2.1)
--- NOTE | 2024-02-13 17:17 | PC.NURSE ---
Pt given saltines and h2o fro PO challenge at 1630. Pt now reports that she feels the same
== END 2024-02-13 18:14 | disposition home or self-care (01) ==
PROVIDERS: Emergency Provider Emergency Medicine; PCP Family Medicine
DX: K52.9 Noninfective gastroenteritis and colitis, unspecified (principal); R10.13 Epigastric pain; R11.2 Nausea with vomiting, unspecified; R79.89 Other specified abnormal findings of blood chemistry
CPT/HCPCS: 36415; 74177; 80053; 83605; 83690; 83735; 85025; 85610; 93005; 96361; 96374; 96375; 99284; J2270; J2405; Q9967

== ENCOUNTER 2024-06-23 09:10 | Emergency (ER) | payer OTHER, SELFPAY ==
[2024-06-23] VITALS (9 sets, daily range): BP systolic 133–165; BP diastolic 65–85; PULSE 82–96; RESP 16–27; TEMP 36.9–37.1; O2SAT 97–100; BMI 17.6
--- NOTE | 2024-06-23 09:22 | EKG_ITS ---
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
--- NOTE | 2024-06-23 09:31 | DI.RAD.S_ITS ---
PROCEDURE: XR CHEST 1V INDICATIONS: chest pain TECHNIQUE: One view of the chest was acquired. COMPARISON: [facility], CR, XR CHEST 1 VIEW, 08/04/2023, 17:39. [facility], CR, XR CHEST 1V, 05/20/2023, 13:19. FINDINGS: Surgical changes and devices: None. Lungs and pleura: Lungs are clear. No pleural effusions or pneumothorax. Mediastinum: Mediastinal contours appear normal. Heart size is normal. Bones and chest wall: No suspicious bony lesions. A posterior lateral left rib fracture which was acute on the more recent prior study has healed. There is resultant rib deformity. Overlying soft tissues appear unremarkable. IMPRESSION: No acute cardiopulmonary abnormality is seen. Dictated by: Zeeshan Dickerson M.D. on 06/23/2024 at 10:10 Approved by: Zeeshan Dickerson M.D. on 06/23/2024 at 10:12
--- NOTE | 2024-06-23 09:35 | ED.CHESTPAIN ---
HPI - Chest Pain General Chief Complaint: Chest Pain Stated Complaint: CP & Dyspnea Time Seen by Provider: 06/23/24 09:31 Source: patient Mode of arrival: EMS Limitations: no limitations History of Present Illness HPI narrative: Patient 63-year-old female history of hypertension COPD PTSD presenting today with chest pain. She is currently homeless living in her car. She reports she got housing yesterday really trying to turn her life around. She does admit to smoking methamphetamine, last time she used was yesterday she is also cigarette smoker and marijuana. She says this morning she was awake sitting in her car when she had pretty sharp stabbing chest pain. Nonradiating. Having some mild difficulty breathing. Here she does not appear in any sort of acute distress. She does have inhalers which sometimes she uses but is concerned she may have had a panic attack. She has no known coronary artery disease. Related Data Home Medications Medication Instructions Recorded Confirmed amlodipine 10 mg PO 1XD 08/31/22 01/29/23 mometasone-formoterol [Dulera] 1 inh inhalation DAILY 08/31/22 01/29/23 prazosin 2 mg PO 1XD 08/31/22 01/29/23 sertraline [Zoloft] 100 mg PO 1XD 08/31/22 01/29/23 ferrous sulfate 325 mg (65 mg 325 mg PO Q OTHER DAY 01/28/23 01/29/23 iron) tablet (FeroSul) Previous Rx's Medication Instructions Recorded albuterol sulfate 90 mcg/actuation 1 puff INH Q4HP PRN #1 ea 01/31/16 aerosol inhaler (Ventolin HFA) albuterol sulfate 90 mcg/actuation 2 puff inhalation Q4-6H PRN 05/20/23 aerosol inhaler shortness of breath or wheezing #8.5 grams tramadol 50 mg tablet 50 mg PO Q8H PRN pain #10 tabs 05/20/23 ondansetron 4 mg disintegrating 4 mg PO Q8H PRN nausea and 02/13/24 tablet vomiting #30 tabs tramadol 50 mg tablet 50 mg PO Q8H PRN pain #9 tabs 02/13/24 Allergies Allergy/AdvReac Type Severity Reaction Status Date / Time Penicillins Allergy Unknown Verified 02/13/24 14:48 Sulfa (Sulfonamide Allergy Unknown Verified 02/13/24 14:48 Antibiotics) ibuprofen AdvReac Intermediate Verified 06/23/24 09:24 Patient History Social History household members: friend(s) Smoking Status: Current every day smoker Smoking Status: Current every day smoker tobacco type: cigarettes alcohol intake frequency: 0-2 drinks per day Exam Initial Vital Signs Initial Vital Signs: Vital Signs Blood Pressure 165/85 H 06/23/24 09:13 Pulse Oximetry 97 06/23/24 09:13 GENERAL: 63-year-old female appears older than stated and in no acute distress. HEENT: Head atraumatic,EOMI, pupils reactive, face symmetric, moist mucous membranes CARDIOVASCULAR: Regular rate and rhythm without murmurs, rubs or gallops. RESPIRATORY: Breath sounds equal bilaterally, no wheezes rales or rhonchi. ABDOMEN: Soft, nontender. Normoactive bowel sounds all 4 quadrants. No guarding or rebound. EXTREMITIES: Normal range of motion, no clubbing or edema. Neurovascularly intact NEUROLOGICAL: Alert and oriented x4.Normal gait and speech. SKIN: Warm, dry, no laceration, no petechiae, no rashes or lesions. Scores HEART Score Heart Score history: Slightly Suspicious Heart Score EKG: Normal Heart Score Age: 45-64 years old Heart Score risk factors: 1-2 risk factors Heart Score troponin: < or = to normal limit Heart Score Total: 2 Course Orders Ordered: ED Orders 06/23/24 09:22 Consult to CLINICAL MICROBIOLOGIST - Security Tech Stat 06/23/24 09:30 Complete Blood Count AUTO DIFF Stat Comprehensive Metabolic Panel Stat Lipase Stat NT-proBNP (BNP-Adult 18+) Stat Troponin & CK Cardiac Panel Stat 06/23/24 09:31 XR chest 1V Stat EKG-12 Lead Stat 06/23/24 10:02 EKG-12 Lead Routine 06/23/24 10:13 RT Consult Eval and Treat NOW 06/23/24 11:30 Trop I [Troponin I] Stat Discontinued Medications Albuterol (Albuterol 2.5 Mg/3 Ml Neb (Adult)) 2.5 mg INH NOW ONE Stop: 06/23/24 10:13 Last Admin: 06/23/24 10:20 Dose: 2.5 mg Documented By: LUIS Albuterol (Albuterol Hfa Prepack) 1 box MISC DIRECTED ONE Stop: 06/23/24 12:11 Last Admin: 06/23/24 12:22 Dose: 1 box Documented By: Ketorolac Tromethamine (Ketorolac 30 Mg/Ml Vial) 15 mg IV NOW ONE Stop: 06/23/24 10:54 Last Admin: 06/23/24 10:59 Dose: 15 mg Documented By: Vital Signs Vital signs: Vital Signs - 8 hr 06/23/24 10:20 06/23/24 10:30 06/23/24 11:00 Temperature Pulse Rate 96 H 88 91 H Respiratory Rate 20 21 18 Blood Pressure 144/65 H Pulse Oximetry 99 100 99 Oxygen Delivery Method Room Air Room Air 06/23/24 11:30 06/23/24 12:29 Temperature 98.4 F 98.7 F Pulse Rate 93 H Respiratory Rate 27 H 16 Blood Pressure 133/78 144/78 H Pulse Oximetry 99 100 Oxygen Delivery Method Room Air Room Air MDM - Chest Pain Lab Data 06/23/24 09:30 06/23/24 09:30 Labs: Lab Results 06/23/24 06/23/24 Range/Units 09:30 11:30 WBC 11.1 H (4.5-11.0) X10^3/uL RBC 5.00 (4.0-5.2) X10^6/uL Hgb 13.8 (12.0-16.0) g/dL Hct 41.3 (36-46) % MCV 82.5 (80-100) fL MCH 27.5 (26-34) PG MCHC 33.3 (30-36) % RDW 13.6 (11.6-14.8) % Plt Count 257 (150-400) X10^3/uL Neut % (Auto) 75.3 H (50-75) % Lymph % (Auto) 16.3 L (25-40) % [place] % (Auto) 7.8 (3-14) % Eos % (Auto) 0.3 L (2-4) % Baso % (Auto) 0.3 (0-2) % Neut # (Auto) 8400 H (8218-1582) /uL Lymph # (Auto) 1800 (7451-5202) /uL [place] # (Auto) 900 (0-900) /uL Eos # (Auto) 0 (0-450) /uL Baso # (Auto) 0 (0-100) /uL Sodium 133 L (137-145) mmol/L Potassium 3.8 (3.4-5.1) mmol/L Chloride 102 (98-107) mmol/L Carbon Dioxide 24 (22-32) mmol/L BUN 14 (7-17) mg/dL Creatinine 0.52 (0.52-1.04) mg/dL Estimated GFR > 60 (>60) mL/min BUN/Creatinine Ratio 26.9 H (6-22) Glucose 127 H (80-110) mg/dL Calcium 8.5 (8.4-10.2) mg/dL Total Bilirubin 1.0 (0.2-1.3) mg/dL AST 49 H (14-36) IU/L ALT 28 (<35) IU/L Alkaline Phosphatase 84 (38-126) U/L Total Creatine Kinase 57 (30-135) U/L Troponin I < 0.012 < 0.012 (0.01-0.034) ng/mL NT-Pro-B Natriuret Pep 752 H (<125) pg/mL Total Protein 7.0 (6.3-8.2) g/dL Albumin 3.8 (3.5-5.0) g/dL Globulin 3.2 (1.7-4.1) g/dL Albumin/Globulin Ratio 1.2 (1.0-2.8) Lipase 45 (23-300) U/L Imaging Data Chest x-ray: Radiologist's Impression: PROCEDURE: XR CHEST 1V INDICATIONS: chest pain TECHNIQUE: One view of the chest was acquired. COMPARISON: [facility], CR, XR CHEST 1 VIEW, 08/04/2023, 17:39. [facility], CR, XR CHEST 1V, 05/20/2023, 13:19. FINDINGS: Surgical changes and devices: None. Lungs and pleura: Lungs are clear. No pleural effusions or pneumothorax. Mediastinum: Mediastinal contours appear normal. Heart size is normal. Bones and chest wall: No suspicious bony lesions. A posterior lateral left rib fracture which was acute on the more recent prior study has healed. There is resultant rib deformity. Overlying soft tissues appear unremarkable. IMPRESSION: No acute cardiopulmonary abnormality is seen. Dictated by: Zeeshan Dickerson M.D. on 06/23/2024 at 10:10 Approved by: Zeeshan Dickerson M.D. on 06/23/2024 at 10:12 ECG Data Attestation: I personally reviewed and interpreted this ECG as follows: Prior ECG tracings: available for review Interpretation: Sinus rhythm rate 86 NJ interval 170 QRS [address] changes noted in V2 V3 no ST depressions MDM Narrative Medical decision making narrative: MDM CC: Chest pain shortness of breath Complicating co-morbidities: Homelessness, COPD polysubstance use, hypertension PTSD Medical records reviewed: Previous ED records Differential considered: Acute coronary syndrome COPD exacerbation CHF Exam documented above, pertinent findings include: Awake alert 63-year-old female appears older than stated age no significant difficulty in breathing no wheezes no respiratory distress no evidence of fluid overload Lab Test results independently reviewed as above. Pertinent findings: CBC shows mild leukocytosis of 11 no significant left shift CMP no significant electrolyte abnormalities glucose 127 Troponin negative x2 BNP 752 previously 229 Liver enzymes within normal limits Independently reviewed EKG as above Sinus rhythm no obvious ST elevations there is some mild change noted in V2 and V3 Imaging studies independently reviewed: Chest x-ray no acute cardiopulmonary process Treatments: Albuterol Re-evaluations: Patient reports that she has a little shaky after albuterol but that her chest pain is gone and overall breathing much better Discussion: 63-year-old female presenting today with chest pain or shortness breath. He does have history of COPD she has other risk factors such as homelessness but it does sound like she was getting into housing very quickly. Her workup today in the emergency department is overall negative. We will give her an albuterol inhaler to go home with. I do not really see a need for steroids. BNP is slightly more elevated but no significant evidence of fluid overload. Do recommend outpatient stress test but no need for hospitalization at this time Heart score 2 Discharge Plan Departure Patient Disposition: Home Clinical Impression: Atypical chest pain, COPD (chronic obstructive pulmonary disease) Instructions: DI for Atypical Chest Pain Activity Restrictions/Additional Instructions: *You have been diagnosed with atypical chest pain *What to do: At this time I think your chest pain was related to COPD. Good luck with new housing *Continue to take medications as directed Albuterol 1-2 puffs every 4 hours if needed for coughing and shortness of breath *Follow up with your primary care provider in 2-3 days or call [phone] *Return to ER if you should have increasing chest pain or shortness of breath or any new, worsening or concerning symptoms Prescriptions: No Action prazosin 2 mg PO 1XD sertraline [Zoloft] 100 mg PO 1XD amlodipine 10 mg PO 1XD mometasone-formoterol [Dulera] 1 inh inhalation DAILY albuterol sulfate [Ventolin HFA] 90 MCG/PUFF HFA aerosol inhaler 1 puff INH Q4HP PRNQty: 1 5RF ferrous sulfate [FeroSul] 325 mg (65 mg iron) tablet 325 mg PO Q OTHER DAY Patient Comments: take 1 tablet by mouth every other day ondansetron 4 mg tablet,disintegrating 4 mg PO Q8H PRN (Reason: nausea and vomiting) Qty: 30 0RF tramadol 50 mg tablet 50 mg PO Q8H PRN (Reason: pain) Qty: 9 0RF tramadol 50 mg tablet 50 mg PO Q8H PRN (Reason: pain) Qty: 10 0RF albuterol sulfate 90 mcg/actuation HFA aerosol inhaler 2 puff inhalation Q4-6H PRN (Reason: shortness of breath or wheezing) Qty: 8.5 2RF Referrals: Gerald Kan MD [Primary Care Provider] - Stand Alone Forms: Patient Portal/API/Survey
[2024-06-23 09:41] LABS: Add Manual Diff / Slide Review NO; Basophils Absolute Auto 0 /uL (0-100); Basophils Percent Auto 0.3 % (0-2); Eosinophils Absolute Auto 0 /uL (0-450); Eosinophils Percent Auto 0.3 % (2-4); Hematocrit 41.3 % (36-46); Hemoglobin 13.8 g/dL (12.0-16.0); Lymphocytes Absolute Auto 1800 /uL (1100-4500); Lymphocytes Percent Auto 16.3 % (25-40); Mean Corpuscular HGB Conc 33.3 % (30-36); Mean Corpuscular Hemoglobin 27.5 PG (26-34); Mean Corpuscular Volume 82.5 fL (80-100); Monocytes Absolute Auto 900 /uL (0-900); Monocytes Percent Auto 7.8 % (3-14); Neutrophils Absolute Auto 8400 /uL (1500-7000); Neutrophils Percent Auto 75.3 % (50-75); Platelet Count 257 X10^3/uL (150-400); Red Cell Distribution Width 13.6 % (11.6-14.8); White Blood Cell Count 11.1 X10^3/uL (4.5-11.0)
[2024-06-23 09:47] LABS: Albumin 3.8 g/dL (3.5-5.0); Calcium 8.5 mg/dL (8.4-10.2); Carbon Dioxide 24 mmol/L (22-32); Chloride 102 mmol/L (98-107); Glucose 127 mg/dL (80-110); Lipase 45 U/L (23-300); Potassium 3.8 mmol/L (3.4-5.1); Sodium 133 mmol/L (137-145)
[2024-06-23 09:56] LABS: Alanine Aminotransferase 28 IU/L (<35); Albumin Globulin Ratio 1.2 (1.0-2.8); Alkaline Phosphatase 84 U/L (38-126); Aspartate Aminotransferase 49 IU/L (14-36); BUN Creatinine Ratio 26.9 (6-22); Blood Urea Nitrogen 14 mg/dL (7-17); Creatine Kinase 57 U/L (30-135); Estimated Glomerular Filt Rate > 60 mL/min (>60); Globulin 3.2 g/dL (1.7-4.1); NT-proBNP (BNP-Adult 18+) 752 pg/mL (<125)
[2024-06-23 09:57] LABS: HEMOLYSIS 124 (0-50)
--- NOTE | 2024-06-23 10:02 | EKG_ITS ---
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
[2024-06-23 10:08] LABS: Troponin I < 0.012 ng/mL (0.01-0.034)
[2024-06-23] MEDS: ALBUTEROL 2.5 MG/3 ML NEB (ADULT) INH (10:20)
[2024-06-23] MEDS: KETOROLAC 30 MG/ML VIAL 15 MG IV (10:59)
--- NOTE | 2024-06-23 11:12 | RT ---
pt tata karlie tx well, no distress noted and on room air
--- NOTE | 2024-06-23 11:37 | CM.SWNOTE ---
ED PARTS COUNTER ASSOCIATE Note Patient is 63 y/o female who presents to ED due to concerns for Chest Pain and SOB. PARTS COUNTER ASSOCIATE receives consult due to patient's concern for food and housing insecurity. Patient's PCP is Dr. Kan, patient has Medicaid [employer]. PARTS COUNTER ASSOCIATE enters room to meet with patient, patient presents as A/Ox4. Patient endorses that she is currently in the background check process of moving into [facility] in [place] (permanent housing program through [facility]). Patient endorses her counselor with [employer] assisted her in getting into this program. Patient endorses she receives SSI and food stamps. Patient denies any need for resources from this PARTS COUNTER ASSOCIATE and states that she knows how to access local resources. Plan: patient likely to d/c to home upon medical clearance, patient to f/u with outpatient providers and community supports. JAVIER RinaldiSW
[2024-06-23 12:05] LABS: Troponin I < 0.012 ng/mL (0.01-0.034)
[2024-06-23] MEDS: ALBUTEROL HFA PREPACK 1 BOX MISC (12:22)
== END 2024-06-23 12:35 | disposition home or self-care (01) ==
PROVIDERS: Emergency Provider Emergency Medicine; PCP Family Medicine
DX: R07.89 Other chest pain (principal); I10 Essential (primary) hypertension; J44.9 Chronic obstructive pulmonary disease, unspecified; Z72.0 Tobacco use; Z88.2 Allergy status to sulfonamides; F43.10 Post-traumatic stress disorder, unspecified; R06.00 Dyspnea, unspecified; Z59.00 Homelessness unspecified
CPT/HCPCS: 36415; 71045; 80053; 82550; 83690; 83880; 84484; 85025; 93005; 94640; 96374; 99284; J1885; J7613